=== PATIENT | female | born 1995 | race Caucasian/White ===

== ENCOUNTER → 2017-10-25 10:25 | Outpatient (CLI) | payer SELFPAY ==
[2017-10-25 13:09] LABS: Chlamydia Trachomatis by PCR Negative (Negative); Neisserai gonorrhoeae by PCR Negative (Negative); Probe Check PASS; Sample Adequacy Control PASS; Specimen Processing Control PASS
== END ==
PROVIDERS: Visit Provider Obstetrics & Gynecology
DX: Z11.3 Encounter for screening for infections with a predominantly sexual mode of transmission (principal)
CPT/HCPCS: 87491; 87591

== ENCOUNTER → 2018-01-13 11:41 | Outpatient (CLI) | payer SELFPAY ==
--- NOTE | 2018-01-13 11:48 | RAD_ITS ---
STUDY: HYSTEROSALPINGOGRAM. REASON FOR EXAM: Female, 22 years old. Infertility. FLUOROSCOPY TIME (if supplied): (0:30) minutes/seconds TECHNIQUE: A hysterosalpingogram was performed by the fire prevention inspector. Contrast was injected. Imaging was provided. COMPARISON: None. FINDINGS: The uterus is anteverted. The fallopian tubes are patent bilaterally. RAD/Salpingogram IMPRESSION: The fallopian tubes are patent bilaterally. Electronically Signed: Osmar Little MD at 13:20 EDT Tel [phone], Service support ,
== END ==
PROVIDERS: Visit Provider Obstetrics & Gynecology
DX: N97.9 Female infertility, unspecified (principal)
CPT/HCPCS: 58340; 74740; Q9967

== ENCOUNTER → 2018-04-27 08:56 | Outpatient (CLI) | payer SELFPAY ==
[2018-04-27 10:42] LABS: Glucose 84 mg/dL (74-106)
[2018-04-28 13:37] LABS: DHEA Sulfate 232.1 ug/dL (110.0-431.7)
== END ==
PROVIDERS: Visit Provider Obstetrics & Gynecology
DX: N94.6 Dysmenorrhea, unspecified (principal); D25.9 Leiomyoma of uterus, unspecified
CPT/HCPCS: 36415; 82627; 82947; 83525; 82626

== ENCOUNTER → 2018-05-16 11:01 | Outpatient (CLI) | payer SELFPAY ==
[2018-05-16 12:30] LABS: Progesterone Level 14.46 ng/mL (See Comment)
== END ==
PROVIDERS: Visit Provider Obstetrics & Gynecology
DX: N97.0 Female infertility associated with anovulation (principal)
CPT/HCPCS: 36415; 84144

== ENCOUNTER → 2018-06-10 10:07 | Outpatient (CLI) | payer SELFPAY ==
[2018-06-10 12:56] LABS: Progesterone Level 13.46 ng/mL (See Comment)
== END ==
PROVIDERS: Family Provider Family Medicine; PCP Family Medicine; Referring Provider Obstetrics & Gynecology; Visit Provider Obstetrics & Gynecology
DX: N97.0 Female infertility associated with anovulation (principal)
CPT/HCPCS: 36415; 84144

== ENCOUNTER → 2018-07-11 14:53 | Outpatient (CLI) | payer SELFPAY ==
[2018-07-11 18:45] LABS: Progesterone Level 10.39 ng/mL (See Comment)
--- OUTSIDE RECORDS SUMMARY | 2018-10-13 03:03 | XMS RPT_ITS ---
:1995 Author Organization OHIP Care Team Providers Name Role Phone GomezJunior Summer Attending Unavailable summer Attending Unavailable summer Attending Unavailable summer Referring Unavailable Primay Care Physicia, No Primary Care Unavailable summer Attending Unavailable Primay Care Physicia, No Primary Care Unavailable , Summer Attending Unavailable Primay Care Physicia, No Primary Care Unavailable summer Attending Unavailable summer Referring Unavailable Josie Perez PA-C Primary Care Unavailable PROBLEMS PROBLEMS DATE TYPE CONDITION / CODE ATTENDING STATUS SOURCE 07/11/2018 Unknown N97.0 - Female Pranav, Active [place] infertility [facility] associated with Hospital anovulation / Repository N97.0(ICD-10) 04/27/2018 Unknown N94.6 - Pranav, Active [place] Dysmenorrhea, [facility] unspecified / Hospital N94.6(ICD-10) Repository 04/27/2018 Unknown D25.9 - Leiomyoma Pranav, Active [place] of uterus, [facility] unspecified / Hospital D25.9(ICD-10) Repository 01/13/2018 Unknown N97.9 - Female Pranav, Active [place] infertility, [facility] unspecified / Hospital N97.9(ICD-10) Repository PROCEDURES PROCEDURES No Procedure Records FoundRESULTS RESULTS PROGESTERONE LEVEL Collected: 07/11/2018 Status: F Source: [place] 3:01 PM [facility] Order Comment: TODAY IS CYCLE DAY 23. TYPE CODE TESTS RESULT OUT OF REFERENCE UNITS RANGE LAB L509.4001 See Comment ng/mL Progesterone Normal 10.39 Result Comment: Progesterone Reference Table: UNITS Female: Follicular 0.15 - 1.40 ng/mL Luteal 3.34 - 25.56 ng/mL Mid-luteal 4.44 - 28.03 ng/mL Postmenopausal 0.0 - 0.73 ng/mL : 1st Trimester 11.22 - 90.00 ng/mL 2nd Trimester 25.55 - 89.40 ng/mL 3rd Trimester 48.40 -422.50 ng/mL Performed By: #### L509.4001 #### [facility] [place], [address] PROGESTERONE LEVEL Collected: 06/10/2018 Status: F Source: [place] 10:19 AM [facility] TYPE CODE TESTS RESULT OUT OF REFERENCE UNITS RANGE LAB L509.4001 See Comment ng/mL Progesterone Normal 13.46 Result Comment: Progesterone Reference Table: UNITS Female: Follicular 0.15 - 1.40 ng/mL Luteal 3.34 - 25.56 ng/mL Mid-luteal 4.44 - 28.03 ng/mL Postmenopausal 0.0 - 0.73 ng/mL : 1st Trimester 11.22 - 90.00 ng/mL 2nd Trimester 25.55 - 89.40 ng/mL 3rd Trimester 48.40 -422.50 ng/mL Performed By: #### L509.4001 #### [facility] [address] [place], [address] PROGESTERONE LEVEL Collected: 05/16/2018 Status: F Source: [place] 11:04 AM [facility] Order Comment: TODAY IS CYCLE DAY 23. TYPE CODE TESTS RESULT OUT OF REFERENCE UNITS RANGE LAB L509.4001 See Comment ng/mL Progesterone Normal 14.46 Result Comment: Progesterone Reference Table: UNITS Female: Follicular 0.15 - 1.40 ng/mL Luteal 3.34 - 25.56 ng/mL Mid-luteal 4.44 - 28.03 ng/mL Postmenopausal 0.0 - 0.73 ng/mL : 1st Trimester 11.22 - 90.00 ng/mL 2nd Trimester 25.55 - 89.40 ng/mL 3rd Trimester 48.40 -422.50 ng/mL Performed By: #### L509.4001 #### [facility] [address] [place], [address] GLUCOSE Collected: 04/27/2018 Status: F Source: [place] 8:59 AM [facility] Order Comment: TODAY IS CYCLE DAY 4 TYPE CODE TESTS RESULT OUT OF RANGE REFERENCE UNITS LAB L501.0100 74-106 mg/dL Normal GLU 84 Result Comment: Please note revised GLUCOSE reference range effective 2017. Performed By: #### L501.0100 #### [facility] [address] [place], [address] INSULIN Collected: 04/27/2018 Status: F Source: [place] 8:59 AM [facility] TYPE CODE TESTS RESULT OUT OF RANGE REFERENCE UNITS LAB [id number] 2.6-37.6 mU/L Normal Insulin 6.0 Result Comment: Please Note: INSULIN METHOD AND REFERENCE RANGE CHANGE Effective 08/04/2017. Performed By: #### [id number] #### [facility] [address] [place], [address] DHEA SULFATE Collected: 04/27/2018 Status: F Source: [place] 8:59 AM [facility] Order Comment: Has Patient had Radioactive Injection for X-ray?: N TYPE CODE TESTS RESULT OUT OF RANGE REFERENCE UNITS LAB L3300.1500 110.0-431.7 ug/dL Normal DHEA SULF 232.1 4020 Result Comment: Performed at: - [facility] [address] [id number] Nurse College: Cameron Steele PhD, Phone: [phone] Performed By: #### L3300.1500 #### [facility] (refer to report for specific site) refer to report for address and phone number SALPINGOGRAM Observed: 01/13/2018 Status: F Source: [place] 11:48 AM [facility] [address] [place] [address] Salpingogram MR#: [id number] Acct: [id number] Name: LISA DUFF Rep #: [id number] : 1995 F 22 From: Osmar Little MD PCP: Care Physician, No Primary Status: REG CLI Study: Salpingogram Date of Exam: 01/13/18 Exam# [id number] Ordering Dr: Lucy Montenegro MD STUDY: HYSTEROSALPINGOGRAM. REASON FOR EXAM: Female, 22 years old. Infertility. FLUOROSCOPY TIME (if supplied): (0:30) minutes/seconds TECHNIQUE: A hysterosalpingogram was performed by the ice skating teacher. Contrast was injected. Imaging was provided. COMPARISON: None. FINDINGS: The uterus is anteverted. The fallopian tubes are patent bilaterally. RAD/Salpingogram IMPRESSION: The fallopian tubes are patent bilaterally. Electronically Signed: Osmar Little MD at 13:20 EDT Tel [phone], Service support , CC: No Primary Care Physician; Lucy Rock MD Winch Driver: Signed CT/NG [facility] BY PCR Collected: 10/25/2017 Status: F Source: [place] 9:15 AM [facility] REPOSITORY TYPE CODE TESTS RESULT OUT OF RANGE REFERENCE UNITS LAB L8200.2100 Negative Normal Chlam Negative Trac PCR LAB L8200.2200 Negative Normal NG by Negative PCR Performed By: #### L8200.2000 #### [facility] [address] [place], [address] ALLERGIES ALLERGIES No Allergies Records FoundENCOUNTERS ENCOUNTERS ADMIT/DISCHARGE ACCOUNT ADMITTING ENCOUNTER LOCATION SOURCE NUMBER CLASS 07/11/2018 [id number] Ambulatory [facility] ing:LABSPEC Repository 06/10/2018 [id number] [facility] ing:LAB Repository 05/16/2018 [id number] Ambulatory [facility] ing:WOBLAB Repository 04/27/2018 [id number] Ambulatory [address] ing:WOBLAB Repository 01/13/2018 [id number] Ambulatory [facility] ing:RAD Repository 10/25/2017 [id number] Ambulatory [facility] ing:LABSPEC Repository PAYERS PAYERS ENCOUNTER GUARANTOR PAYER SUBSCRIBER SOURCE 07/11/2018 LISA Fay Primary NOT GIVENUNK [place] [id number] BRISA Insurance:SELF PAY [place] [address]Tel: [phone]) Number: Effective Repository [phone] () Date:2018-07-11 06/10/2018 LISA Fay Primary NOT GIVENUNK [place] [id number] [place] Insurance:SELF PAY [facility] [address]Xfo: [phone]) Number: Effective Repository [phone] () Date:2018-06-10 05/16/2018 LISA Fay Primary NOT GIVENUNK [place] [id number] [place] Insurance:SELF PAY [place] [address]Tel: [phone]) Number: Effective Repository [phone] () Date:2018-05-16 04/27/2018 LISA J Primary NOT GIVENUNK [place] [id number] BRISA Insurance:SELF PAY [facility] [address]Efj: [phone]) Number: Effective Repository [phone] () Date:2018-04-25 01/13/2018 LISA J Primary Insurance:[facility] LISA J [place] [id number] BRISA PACKAGE PLANPoly CHOJDOB: [place], [place] Number: [id number] [address]Aed: [phone]) [id number] Repository [phone] () Date:2018-01-06 01/13/2018 Secondary NOT GIVENUNK [place] Insurance:SELF PAY [facility] Number: Effective Repository Date:2018-01-06 10/25/2017 LISA Primary NOT GIVENUNK [place] [id number] BRISA Insurance:SELF PAY [facility] [address]Rjt: . () Number: Effective Repository Date:2017-10-25
== END ==
PROVIDERS: Visit Provider Obstetrics & Gynecology
DX: N97.0 Female infertility associated with anovulation (principal)
CPT/HCPCS: 36415; 84144

== ENCOUNTER → 2018-10-26 12:04 | Outpatient (CLI) | payer SELFPAY | PROVIDERS: Visit Provider Obstetrics & Gynecology | DX: N97.0 Female infertility associated with anovulation (principal) | CPT/HCPCS: 36415; 84144 ==

== ENCOUNTER → 2019-02-06 | Outpatient (CLI) | payer SELFPAY ==
[2019-02-06 14:39] VITALS: BMI 21.8
[2019-02-06 16:06] LABS: Absolute Lymphocyte Count 1.66 X10^3/uL (0.83-4.51); Absolute Neutrophil Count 7.4 X10^3/uL (2.0-7.7); Basophil# 0.03 X10^3/uL; Basophil% 0.3 % (0-1); Eosinophil# 0.05 X10^3/uL; Eosinophils% 0.5 % (0-5); Hematocrit 39.2 % (37-47); Hemoglobin 14.1 g/dL (12.0-15.0); Lymphocyte # 1.66 X10^3/ul (4.0); Lymphocyte % 16.8 % (19-41); Mean Corpuscular Hgb 31.7 pg (27.0-32.0); Mean Corpuscular Volume 88.1 fL (81-99); Monocyte% 7.1 % (0-10); NRBC Flagged by Analyzer 0 % (0-5); Platelet Count 169 K/mm3 (150-450); RBC Distribution Width CV 11.9 % (11.6-14.6); RBC Distribution Width SD 37.7 fl (35.1-43.9); Red Blood Count 4.45 M/mm3 (4.2-5.4); White Blood Count 9.9 K/mm3 (4.4-11.0)
[2019-02-06 17:31] LABS: HIV - WCH Non-Reactive (Nonreactive); Rubella IgG 159.9 IU/mL
[2019-02-06 22:49] LABS: Chlamydia Trachomatis by PCR Negative (Negative); Neisserai gonorrhoeae by PCR Negative (Negative); Probe Check PASS; Sample Adequacy Control PASS; Specimen Processing Control PASS
[2019-02-09 04:56] LABS: Rapid Plasmin Reagin (RPR) NONREACTIVE (NONREACTIVE)
[2019-02-12 13:23] LABS: HPV Reflexed? NOT INDICATED
== END | disposition home or self-care (01) ==
PROVIDERS: Referring Provider Nurse Practitioner Women's Health; Visit Provider Nurse Practitioner Women's Health
DX: Z34.90 Encounter for supervision of normal pregnancy, unspecified, unspecified trimester (principal)
CPT/HCPCS: 36415; 85025; 86592; 86703; 86762; 86850; 86900; 87086; 87491; 87591; 87624; 88175; G0145

== ENCOUNTER → 2019-04-17 13:25 | Outpatient (CLI) | payer SELFPAY ==
[2019-03-06 15:10] VITALS: BMI 22.4
--- NOTE | 2019-04-17 13:27 | US_ITS ---
STUDY: SECOND AND THIRD TRIMESTER OBSTETRICAL ULTRASOUND REASON FOR EXAM: Female, 23 years old ANATOMY SCAN LMP: 11/30/2018 TECHNIQUE: Transabdominal TECHNICAL QUALITY: Adequate. PRIOR ULTRASOUND: None. FINDINGS: There is a single intrauterine fetus. The fetus is in a breech presentation. There is demonstrated cardiac activity with a heart rate of 143 bpm. There is a normal amniotic fluid volume. The placenta is posterior in location and is not low lying. There are Grade 0 placental changes. The cervix measures 3.5 cm in length. The adnexal regions are not visualized. BIOMETRY: BPD: 4.6: 19 weeks, 5 days HC: 17.5: 19 weeks, 6 days AC: 14.8: 20 weeks, 0 days FL: 3.2: 19 weeks, 6 days CI: FL/BPD: FL/HC: FL/AC: HC/AC: age by current US: 20 weeks, 0 days. JAKE by current US: 09/04/2019. Estimated weight: 325 grams, +/- 49 grams, 60 %. age by prior US: weeks, days. JAKE by prior US: . Age by LMP: 19 weeks, 5 days. JAKE by LMP: 09/06/2019. ANATOMY: Gender: Male Cranium: Normal lateral ventricles. Normal choroid plexus. Normal cerebellum. Normal cisterna magna. Normal face, nose and lips. Chest: Normal 4-chamber heart. Abdomen/Pelvis: Normal diaphragm. Normal stomach. Normal abdominal wall. Normal cord insertion. Normal 3 vessel cord. Normal kidneys. Normal bladder. Spine: Normal cervical spine. Normal thoracic spine. Normal lumbar spine. Normal sacrum. Extremities: Normal bilateral upper extremities. Normal bilateral lower extremities. US/OB Anatomy Scan IMPRESSION: Single live fetus in a breech presentation. No demonstrated anatomic abnormality. Placenta is grade 0 and is not low-lying. Cervix is closed. age by current US: 20 weeks, 0 days. JAKE by current US: 09/04/2019. Estimated weight: 325 grams, +/- 49 grams, 60 %. Electronically Signed: Paolo Lane MD at 23:00 EDT , Service support ,
== END ==
PROVIDERS: Referring Provider Obstetrics & Gynecology; Visit Provider Obstetrics & Gynecology
DX: Z36.89 Encounter for other specified antenatal screening (principal)
CPT/HCPCS: 76805

== ENCOUNTER → 2019-06-12 09:05 | Outpatient (CLI) | payer SELFPAY ==
[2019-06-12 08:55] VITALS: BMI 22.4
[2019-06-12 10:28] LABS: Absolute Lymphocyte Count 1.44 X10^3/uL (0.83-4.51); Absolute Neutrophil Count 9.1 X10^3/uL (2.0-7.7); Basophil# 0.03 X10^3/uL; Basophil% 0.3 % (0-1); Eosinophil# 0.05 X10^3/uL; Eosinophils% 0.4 % (0-5); Hematocrit 37.7 % (37-47); Hemoglobin 12.9 g/dL (12.0-15.0); Lymphocyte # 1.44 X10^3/ul (4.0); Lymphocyte % 12.6 % (19-41); Mean Corp Hgb Conc 34.2 g/dL (32-36); Mean Corpuscular Hgb 31.7 pg (27.0-32.0); Mean Corpuscular Volume 92.6 fL (81-99); Mean Platelet Vol. 8.3 fl (6.2-12.0); Monocyte# 0.76 X10^3/uL; Monocyte% 6.7 % (0-10); NRBC Flagged by Analyzer 0 % (0-5); Neutrophil # 9.06 X10^3/uL (2.7-7.7); Neutrophil % 79.4 % (47-70); Platelet Count 147 K/mm3 (150-450); RBC Distribution Width CV 12.6 % (11.6-14.6); RBC Distribution Width SD 42.1 fl (35.1-43.9); Red Blood Count 4.07 M/mm3 (4.2-5.4); White Blood Count 11.4 K/mm3 (4.4-11.0)
[2019-06-12 10:33] LABS: Glucose Challenge Gest 1H 50g 95 mg/dL (70-140)
[2019-06-12 11:00] LABS: Hepatitis B Surface Antigen Non-Reactive (Nonreactive)
== END ==
PROVIDERS: Referring Provider Nurse Practitioner Women's Health; Visit Provider Nurse Practitioner Women's Health
DX: O99.89 Other specified diseases and conditions complicating pregnancy, childbirth and the puerperium (principal); Z20.821 Contact with and (suspected) exposure to Zika virus
CPT/HCPCS: 36415; 82950; 85025; 87340

== ENCOUNTER → 2019-08-16 13:01 | Outpatient (CLI) | payer SELFPAY ==
[2019-08-16 08:37] VITALS: BMI 22.4
== END ==
PROVIDERS: Visit Provider Obstetrics & Gynecology
DX: Z34.01 Encounter for supervision of normal first pregnancy, first trimester (principal)
CPT/HCPCS: 87081

== ENCOUNTER 2019-08-18 02:50 | Inpatient (IN) | payer SELFPAY ==
[2019-02-06 14:39] VITALS: BMI 21.8
[2019-08-16 08:37] VITALS: BMI 22.4
[2019-08-18] MEDS: Lactated Ringers 1,000 ML 999 ML IV (03:10)
[2019-08-18 03:14] VITALS: BMI 26.6
[2019-08-18 03:21] LABS: Absolute Lymphocyte Count 1.07 X10^3/uL (0.83-4.51); Basophil# 0.02 X10^3/uL; Basophil% 0.1 % (0-1); Eosinophil# 0.01 X10^3/uL; Eosinophils% 0.1 % (0-5); Hemoglobin 13.2 g/dL (12.0-15.0); Lymphocyte # 1.07 X10^3/ul (4.0); Lymphocyte % 7.3 % (19-41); Mean Corp Hgb Conc 34.7 g/dL (32-36); Mean Corpuscular Hgb 31.5 pg (27.0-32.0); Mean Corpuscular Volume 90.7 fL (81-99); Mean Platelet Vol. 8.6 fl (6.2-12.0); Monocyte# 0.61 X10^3/uL; Monocyte% 4.1 % (0-10); NRBC Flagged by Analyzer 0 % (0-5); Neutrophil # 12.95 X10^3/uL (2.7-7.7); Neutrophil % 87.9 % (47-70); Platelet Count 129 K/mm3 (150-450); RBC Distribution Width CV 12.5 % (11.6-14.6); RBC Distribution Width SD 40.3 fl (35.1-43.9); Red Blood Count 4.19 M/mm3 (4.2-5.4); White Blood Count 14.7 K/mm3 (4.4-11.0)
--- NOTE | 2019-08-18 03:55 | HP.PCM_ITS ---
- Problem List (1) Active labor at term Status: Acute (2) Zika virus exposure Status: Acute Comment: Traveled to [place], negative testing (3) Status: Acute Qualifiers: Comment: genetic, ntd, and afp screening declined. normal anatomy (4) Supervision of normal first Status: Acute Qualifiers: Comment: PRR JAKE 09/06/19 boy (surprise name) Spouse: Kristopher History Date of Admission: 08/18/19 Final JAKE: 09/06/19 Gestational age: 37 Weeks and 2 Days History of this : This is a 24 year-old, at 37 weeks gestational age presents in active labor 7 to 8 cm dilated. She has had some bloody show no loss of fluid. She admits good movement. She has had an uncomplicated with no significant abnormalities. GBS was just collected the other day which she has no risk factors.. Medical History: Medical History (Last Reviewed 08/16/19 @ 08:36 by Connie Jackson) Infertility Surgical History: Surgical History (Last Reviewed 08/16/19 @ 08:36 by Connie Jackson) History of appendectomy Z90.49 [place] teeth extracted K08.409 Allergies No Known Allergies Allergy (Verified 08/16/19 08:36) Home Medications: Home Medications prenat.vits,keshia,azm-hsjm-jlwcd 1 tab PO DAILY 02/06/19 Smoking Status: Never smoker Alcohol: None Number of Fetus(es): 1 NST - FHR Rate Baby A Baseline: 120 Variability:: Moderate Accelerations:: 15 x 15 Decelerations:: None NST Reactive:: Yes FHR Category:: Category I Uterine Activity:: q 2-3 History Past Pregnancies: Past Pregnancies Delivery Date Name GA/ Weeks Outcome Route Wt Infant Sex Labor Length Anesthesia Delivery Location Provider FOB Labs: Mom's Labs & Results 08/18/19 08/18/19 08/18/19 03:10 03:10 03:16 WBC 14.7 H RBC 4.19 L Hgb 13.2 Hct 38.0 MCV 90.7 MCH 31.5 MCHC 34.7 RDW Std Deviation 40.3 RDW Coeff of Nathan 12.5 Plt Count 129 L MPV 8.6 Immature Gran % (Auto) 0.500 Neut % (Auto) 87.9 H Lymph % (Auto) 7.3 L [place] % (Auto) 4.1 Eos % (Auto) 0.1 Baso % (Auto) 0.1 Absolute Neuts (auto) 13.0 H Absolute Lymphs (auto) 1.07 Nucleated RBC % 0 Group B Strep DNA Pending Specimen Comment Pending Blood Type Pending Antibody Screen Pending Social History Smoking Status Never smoker Expected Delivery Method: Spontaneous Vaginal Review of Systems Constitutional: Denies: Fever, Malaise Eyes: Denies: Blurred vision, Vision Change HEENT: Denies: Head Aches, Visual Changes Cardiovascular: Denies: Chest Pain, Palpitations Respiratory: Denies: Cough, Shortness of Breath, Wheezing Gastrointestinal: Denies: Abdominal Pain, Diarrhea, Nausea, Vomiting Genitourinary: Denies: Dysuria, Hematuria Musculoskeletal: Denies: Joint Pain, Muscle pain Skin: Denies: Lesions, Rash Neurological: Denies: Blurred vision, Focal weakness, Headaches Psychiatric: Denies: Anxiety, Depression Endocrine: Denies: Heat/ Cold Intolerance Hematologic/ Lymphatic: Denies: Easy Bruising, Easy Bleeding Physical Exam General: Alert, Cooperative, No apparent distress HEENT: Atraumatic, Normocephalic. Negative for: Thyromegaly, Lymphadenopathy Cardiovascular: Regular rate Lungs: Normal air movement Abdomen: Soft, Non Tender, Gravid Neurological: Deep Tendon Reflexes 2+/4 and Symmetrical, Neuro grossly intact. Negative for: Clonus CUSTOMS INVESTIGATOR: Normal external genitalia. Negative for: Vulvar lesions Estimated gestational size: Appropriate for gestational size Presentation: Cephalic Assessment/Plan All Active Problems (Last Reviewed 08/16/19 @ 08:36 by Connie Jackson) Active labor at term (Acute) Zika virus exposure (Acute) (Acute) Supervision of normal first (Acute) This is a 24 year-old, , at 37 weeks gestational age presents IAL. Patient presents IAL, plan expectant management for , pitocin/AROM PRN if needed. Pain management: Minimal intervention. GBS no risk factors, final culture pending no treatment indicated at this time. Management of any complications: None I have reviewed the [facility] and made any clinically relevant updates.
[2019-08-18 04:25] LABS: Group B Strep DNA By PCR Negative (Negative); Internal Control PASS; Probe Check PASS; Specimen Processing Control PASS
--- NOTE | 2019-08-18 05:14 | OP.PCM_ITS ---
Problem List (1) Active labor at term Status: Acute (2) Zika virus exposure Status: Acute Comment: Traveled to [place], negative testing (3) Status: Acute Qualifiers: Comment: genetic, ntd, and afp screening declined. normal anatomy (4) Supervision of normal first Status: Acute Qualifiers: Comment: PRR JAKE 09/06/19 boy (surprise name) Spouse: Kristopher Vaginal Delivery Maternal Presentation: Active Labor ial 37 Amniotic Membrane Rupture Type: Artificial Amniotic Fluid Description: Clear Final JAKE: 09/06/19 Gestational age: 37 Weeks and 2 Days Date of Procedure: 08/18/19 Pre-Operative Diagnosis: ial Post-Operative Diagnosis: same Surgery/ Procedure Performed: Spontaneous Vaginal Delivery Type of Anesthesia: None Description of Procedure: Patient began pushing and delivered the head in the [DIGNA] presentation. The head was delivered atraumatically [and a loose nuchal cord ?1 was identified and easily reduced over the infant's head]. The anterior and posterior shoulders delivered without complication followed by the rest of the and the infant was placed on the maternal abdomen. Delayed cord clamping was employed for approximately 60 seconds. Cord was clamped and cut and gentle traction was applied to the cord and the placenta delivered spontaneously immediately following it was noted to be intact with three-vessel cord. The perineum and vagina were inspected and [noted to have no laceration]. EBL was [100 cc]. Patient and infant tolerated delivery well. Multi Select Codes - Urinary/Genital Urinary/Genital CPT Codes: 98009 Vaginal Delivery [facility]
[2019-08-18] MEDS: Oxytocin 30 units/NS 500 ml 30 UNITS/500 ML IV.SOLN 334 UNITS IV (05:56)
[2019-08-18] MEDS: Naproxen 250 MG Tablet 500 MG PO ×2 (06:42→20:06)
[2019-08-18 08:05] VITALS: BP 128/81; PULSE 96; RESP 16; TEMP 36.9; O2SAT 96
[2019-08-18 14:00] VITALS: BP 114/71; PULSE 111; RESP 16; TEMP 37.2
[2019-08-18 15:51] VITALS: BP 121/67; PULSE 108; RESP 18; TEMP 37.2
[2019-08-18 20:00] VITALS: BP 118/71; PULSE 105; RESP 16; TEMP 36.9
[2019-08-19] VITALS: BP 105/57; PULSE 102; RESP 16; TEMP 36.7
[2019-08-19 04:00] VITALS: BP 100/62; PULSE 93; RESP 16; TEMP 36.7
[2019-08-19 08:55] VITALS: BP 124/71; PULSE 113; RESP 16; TEMP 36.8
--- NOTE | 2019-08-19 10:39 | PCM.PN.OB ---
Patient Problems: Active and Suspected Problems (Last Reviewed 08/16/19 @ 08:36 by Connie Jackson) Active labor at term (Acute) Subjective: doing well no complaints pain controlled no CP SOB N V ambulating well tolerating po lochia moderate, going well - Physical Exam Vitals/I&O's: Vital Signs Temp Pulse Resp BP Pulse Ox 98.2 F 113 H 16 124/71 H 96 08/19/19 08:55 08/19/19 08:55 08/19/19 08:55 08/19/19 08:55 08/18/19 08:05 Oxygen Delivery Method Room Air Weight: 150 lb 12.739 oz Body Mass Index (BMI) 26.6 Intake and Output for Last 24 Hours 08/17/19 08/18/19 08/19/19 23:59 23:59 23:59 Intake Total 1500.00 / 1500.00 Output Total 400 / 400 Balance 1100.00 / 1100.00 General: Alert, Oriented x3 Current Medications Acetaminophen (Tylenol) 1,000 mg PO Q8H PRN PRN PRN Reason: Pain Score 1-3/10 Bisacodyl (Dulcolax) 10 mg RECTAL UD PRN PRN Reason: If no BM Dibucaine (Dibucaine) 1 applic TOPICAL TID PRN PRN; Protocol PRN Reason: Discomfort Hydrocortisone (Hytone) 1 applic TOPICAL TID PRN PRN; Protocol PRN Reason: Discomfort Methylergonovine Maleate (Methergine) 0.2 mg IM X1 PRN PRN Reason: Excess bleeding/uterine atony Naproxen (Naprosyn) 500 mg PO Q8H PRN PRN PRN Reason: Pain Score 1-3/10 Last Admin: 08/18/19 20:06 Dose: 500 mg Documented by: Ondansetron HCl (Zofran) 4 mg IV Q4H PRN PRN PRN Reason: Nausea Oxycodone HCl (Oxyir) 5 - 10 mg PO Q4H PRN PRN PRN Reason: Pain Score 4-10/10 Senna/Docusate Sodium (Senokot-S, Mari-Colace) 1 - 2 tablet PO DAILY PRN PRN PRN Reason: Constipation Simethicone (Mylicon) 80 mg PO PCHS PRN PRN Reason: Indigestion/Stomach pain Sodium Chloride () 5 - 15 ml IV UD PRN PRN Reason: SALINE FLUSH Medical Necessity - Tobacco Use Smoking Status: Never smoker Assessment/Plan All Active Problems (Last Reviewed 08/16/19 @ 08:36 by Connie Jackson) Active labor at term (Acute) Zika virus exposure (Acute) (Acute) Supervision of normal first (Acute) s/p PPD # 1 1. routine post delivery care 2. breast feeding- support given 3. rh positive 4. rubella immune
[2019-08-19 15:00] VITALS: BP 99/69; PULSE 103; RESP 16; TEMP 36.7
[2019-08-19 19:45] VITALS: BP 95/71; PULSE 105; RESP 16; TEMP 36.6
[2019-08-20 02:40] VITALS: BP 101/67; PULSE 105; RESP 16; TEMP 36.5
--- NOTE | 2019-08-20 07:43 | PCM.PN.OB ---
Patient Problems: Active and Suspected Problems (Last Reviewed 08/16/19 @ 08:36 by Connie Jackson) Active labor at term (Acute) Subjective: Doing well, no complaints.Pain controlled. Denies CP, SOB, N,V. Ambulating well, tolerating po. Lochia moderate, going well. - Physical Exam Vitals/I&O's: Vital Signs Temp Pulse Resp BP Pulse Ox 97.7 F L 105 H 16 101/67 96 08/20/19 02:40 08/20/19 02:40 08/20/19 02:40 08/20/19 02:40 08/18/19 08:05 Oxygen Delivery Method Room Air Weight: 150 lb 12.739 oz Body Mass Index (BMI) 26.6 Intake and Output for Last 24 Hours 08/18/19 08/19/19 08/20/19 23:59 23:59 23:59 Intake Total 1500.00 / 1500.00 Output Total 400 / 400 Balance 1100.00 / 1100.00 General: Alert, Oriented x3 Abdomen: Soft, Non Tender, - - FF below U Current Medications Acetaminophen (Tylenol) 1,000 mg PO Q8H PRN PRN PRN Reason: Pain Score 1-3/10 Bisacodyl (Dulcolax) 10 mg RECTAL UD PRN PRN Reason: If no BM Dibucaine (Dibucaine) 1 applic TOPICAL TID PRN PRN; Protocol PRN Reason: Discomfort Hydrocortisone (Hytone) 1 applic TOPICAL TID PRN PRN; Protocol PRN Reason: Discomfort Methylergonovine Maleate (Methergine) 0.2 mg IM X1 PRN PRN Reason: Excess bleeding/uterine atony Naproxen (Naprosyn) 500 mg PO Q8H PRN PRN PRN Reason: Pain Score 1-3/10 Last Admin: 08/18/19 20:06 Dose: 500 mg Documented by: Ondansetron HCl (Zofran) 4 mg IV Q4H PRN PRN PRN Reason: Nausea Oxycodone HCl (Oxyir) 5 - 10 mg PO Q4H PRN PRN PRN Reason: Pain Score 4-10/10 Senna/Docusate Sodium (Senokot-S, Mari-Colace) 1 - 2 tablet PO DAILY PRN PRN PRN Reason: Constipation Simethicone (Mylicon) 80 mg PO PCHS PRN PRN Reason: Indigestion/Stomach pain Sodium Chloride () 5 - 15 ml IV UD PRN PRN Reason: SALINE FLUSH Medical Necessity - Tobacco Use Smoking Status: Never smoker Assessment/Plan All Active Problems (Last Reviewed 08/16/19 @ 08:36 by Connie Jackson) Active labor at term (Acute) Zika virus exposure (Acute) (Acute) Supervision of normal first (Acute) s/p PPD # 2 1. routine post delivery care 2. breast feeding- support given 3. rh positive 4. rubella immune 5. home today
--- NOTE | 2019-08-20 07:44 | DCINST_ITS ---
Additional Instructions: If you experience any of the following, contact your healthcare provider. * Bleeding that soaks a pad every hour for 2 hours * Fever 100.4 or higher * Unrelieved incision or abdominal pain * Swelling, redness, discharge or bleeding from your incision or episiotomy site * Your incision begins to separate * Problems urinating (including inability to urinate or burning while urinating). * Visual changes * Severe headache * Flu-like symptoms * Pain or redness in one of both of your breasts * Pain, warmth, tenderness or swelling in your legs, especially the calf area * Frequent nausea and vomiting * Symptoms of depression or anxiety If you experience any of the following, call 911 or go to the nearest Emergency Room. * Chest pain * Problems breathing * Seizure activity * Partial or complete paralysis of a body part, slurred speech, weakness or drooping of the face, or a sudden inability to walk or hold your balance Allergies/Adverse Reactions: Allergies No Known Allergies Allergy (Verified 08/18/19 05:08) Medications to take at Discharge prenat.vits,keshia,hzp-zqnj-lgbpz 1 tab PO DAILY 02/06/19 Primary Care Physician: Care Physician,No Primary [Primary Care Provider] - Test Results: Test results from this visit will be discussed in further detail at your follow- up appointment, if applicable.
--- NOTE | 2019-08-20 07:44 | PCM.DCVAG ---
Additional Instructions: If you experience any of the following, contact your healthcare provider. Bleeding that soaks a pad every hour for 2 hours Fever 100.4 or higher Unrelieved incision or abdominal pain Swelling, redness, discharge or bleeding from your incision or episiotomy site Your incision begins to separate Problems urinating (including inability to urinate or burning while urinating). Visual changes Severe headache Flu-like symptoms Pain or redness in one of both of your breasts Pain, warmth, tenderness or swelling in your legs, especially the calf area Frequent nausea and vomiting Symptoms of depression or anxiety If you experience any of the following, call 911 or go to the nearest Emergency Room. Chest pain Problems breathing Seizure activity Partial or complete paralysis of a body part, slurred speech, weakness or drooping of the face, or a sudden inability to walk or hold your balance Allergies/Adverse Reactions: Allergies No Known Allergies Allergy (Verified 08/18/19 05:08) Medications to take at Discharge prenat.vits,keshia,[id number]-svadi 1 tab PO DAILY 02/06/19 Primary Care Physician: Care Physician,No Primary [Primary Care Provider] - Test Results: Test results from this visit will be discussed in further detail at your follow-up appointment, if applicable.
[2019-08-20 08:21] VITALS: BP 100/69; PULSE 98; RESP 16; TEMP 36.7
--- NOTE | 2019-08-20 08:30 | NURSING ---
Pt states she has slight headache, denies vision changes, denies any pain intervention. States she thinks eating may help
== END 2019-08-20 11:15 | disposition home or self-care (01) | DRG 807 ==
PROVIDERS: Admitting Provider Obstetrics & Gynecology; Referring Provider Obstetrics & Gynecology; Visit Provider Obstetrics & Gynecology
DX: O60.14X0 Preterm labor third trimester with preterm delivery third trimester, not applicable or unspecified (principal); Z37.0 Single live birth; O69.81X0 Labor and delivery complicated by cord around neck, without compression, not applicable or unspecified; Z20.821 Contact with and (suspected) exposure to Zika virus; Z3A.37 37 weeks gestation of pregnancy; Z90.49 Acquired absence of other specified parts of digestive tract
CPT/HCPCS: 59025; 59050; 85025; 86850; 86900; 86901; 87081; 87653; 99218; J7120; G0378

== ENCOUNTER → 2020-10-13 09:45 | Outpatient (CLI) | payer SELFPAY ==
[2020-10-13 09:12] VITALS: BMI 22.1
[2020-10-13 10:02] LABS: Absolute Neutrophil Count 6.5 X10^3/uL (2.0-7.7); Basophil# 0.02 X10^3/uL; Basophil% 0.2 % (0-1); Eosinophil# 0.02 X10^3/uL; Eosinophils% 0.2 % (0-5); Hematocrit 40.9 % (37-47); Hemoglobin 14.2 g/dL (12.0-15.0); Lymphocyte % 19.4 % (19-41); Mean Corp Hgb Conc 34.7 g/dL (32-36); Mean Corpuscular Hgb 31.1 pg (27.0-32.0); Mean Corpuscular Volume 89.7 fL (81-99); Mean Platelet Vol. 8.9 fl (6.2-12.0); Monocyte% 5.7 % (0-10); NRBC Flagged by Analyzer 0 % (0-5); Neutrophil # 6.52 X10^3/uL (2.7-7.7); Neutrophil % 74.3 % (47-70); Platelet Count 201 K/mm3 (150-450); RBC Distribution Width CV 12.4 % (11.6-14.6); RBC Distribution Width SD 39.9 fl (35.1-43.9); Red Blood Count 4.56 M/mm3 (4.2-5.4); White Blood Count 8.8 K/mm3 (4.4-11.0)
[2020-10-13 10:39] LABS: Rubella IgG Reactive (Nonreactive)
== END ==
PROVIDERS: Referring Provider Obstetrics & Gynecology; Visit Provider Obstetrics & Gynecology
DX: Z34.90 Encounter for supervision of normal pregnancy, unspecified, unspecified trimester (principal)
CPT/HCPCS: 36415; 85025; 86762; 86850; 86900; 86901; 87086; 87088

== ENCOUNTER → 2020-12-25 08:02 | Outpatient (CLI) | payer SELFPAY ==
[2020-11-13 08:26] VITALS: BMI 22.8
--- NOTE | 2020-12-25 08:05 | US_ITS ---
STUDY: SECOND AND THIRD TRIMESTER OBSTETRICAL ULTRASOUND REASON FOR EXAM: Female, 25 years old anatomy LMP: 08/13/2020. TECHNIQUE: Transabdominal and Transvaginal TECHNICAL QUALITY: Adequate. PRIOR ULTRASOUND: None. FINDINGS: There is a single intrauterine fetus. The fetus is in a breech transverse right presentation. There is demonstrated cardiac activity with a heart rate of 133 bpm. There is a normal amniotic fluid volume. The largest amniotic fluid pocket measures 2.8 cm x 3.1 cm. The amniotic fluid index (PEREZ) is within normal limits. The placenta is anterior in location and is not low lying. The distal tip of the placenta is at 2 cm from the cervical os. There are Grade 0 placental changes. The cervix measures 3.7 cm in length. The bilateral adnexal regions are normal. BIOMETRY: BPD: 4.5 cm: 19 weeks, 3 days HC: 16.3 cm: 19 weeks, 0 days AC: 14.1 cm: 19 weeks, 3 days FL: 3 cm: 19 weeks, 0 days CI: 82% FL/BPD: 66% FL/HC: FL/AC: 21% HC/AC: 1.16 age by current US: 19 weeks, 1 days. JAKE by current US: 05/20/2021. Estimated weight: 286 grams, +/- 43 grams, 55 %. Age by LMP: 19 weeks, 1 days. JAKE by LMP: 05/20/2021. ANATOMY: Gender: Cranium: Normal lateral ventricles. Left choroid plexus cyst measuring 3 mm x 7 mm. Normal cerebellum. Normal cisterna magna. Normal face, nose and lips. Chest: Normal 4-chamber heart. Abdomen/Pelvis: Normal diaphragm. Normal stomach. Normal abdominal wall. Normal cord insertion. Normal 3 vessel cord. Normal kidneys. Normal bladder. Spine: Normal cervical spine. Normal thoracic spine. Normal lumbar spine. Normal sacrum. Extremities: Normal bilateral upper extremities. Normal bilateral lower extremities. US/OB Anatomy Scan IMPRESSION: Single live intrauterine gestation with a mean gestational age of 19 weeks and 1 day. Small left choroid plexus cyst. Electronically Signed: Osmar Little MD at 14:52 EDT , Service support ,
== END ==
PROVIDERS: Referring Provider Obstetrics & Gynecology; Visit Provider Obstetrics & Gynecology
DX: Z34.80 Encounter for supervision of other normal pregnancy, unspecified trimester (principal)
CPT/HCPCS: 76805; 76817

== ENCOUNTER → 2021-01-23 09:07 | Outpatient (CLI) | payer SELFPAY ==
[2020-12-25 09:48] VITALS: BMI 22.8
--- NOTE | 2021-01-23 09:12 | US_ITS ---
STUDY: SECOND AND THIRD TRIMESTER OBSTETRICAL ULTRASOUND - LIMITED REASON FOR EXAM: Female, 25 years old FU choroid plexus cyst LMP: 08/13/2020. PRIOR ULTRASOUND: Comparison is made with prior examination dated 12/25/2020. TECHNIQUE: Transabdominal TECHNICAL QUALITY: Adequate. FINDINGS: There is a single intrauterine fetus. The fetus is in a breech presentation. There is demonstrated cardiac activity with a heart rate of 152 bpm. There is a normal amniotic fluid volume. The largest amniotic fluid pocket measures 4.7 cm x 6.6 cm. The amniotic fluid index (PEREZ) is within normal limits. The placenta is anterior in location and is not low lying. There are Grade 1 placental changes. The cervix measures 3.5 cm in length. BIOMETRY: Age by LMP: 23 weeks, 2 days. JAKE by LMP: 05/20/2021. age by prior US: 23 weeks, 2 days. JAKE by prior US: 05/20/2021. The choroid plexus cyst presently measures 4 mm x 3 mm. US/OB Limited (No Biometrics) IMPRESSION: Choroid plexus cyst presently measures 4 mm x 3 mm Electronically Signed: Osmar Little MD at 10:30 EDT , Service support ,
== END ==
PROVIDERS: Referring Provider Obstetrics & Gynecology; Visit Provider Obstetrics & Gynecology
DX: O35.0XX0 Maternal care for (suspected) central nervous system malformation in fetus, not applicable or unspecified (principal); Z3A.00 Weeks of gestation of pregnancy not specified
CPT/HCPCS: 76815

== ENCOUNTER → 2021-02-19 10:09 | Outpatient (CLI) | payer SELFPAY ==
[2021-01-23 10:42] VITALS: BMI 22.8
[2021-02-19 10:29] LABS: Absolute Lymphocyte Count 1.17 X10^3/uL (0.83-4.51); Absolute Neutrophil Count 7.6 X10^3/uL (2.0-7.7); Basophil# 0.02 X10^3/uL; Basophil% 0.2 % (0-1); Eosinophil# 0.03 X10^3/uL; Eosinophils% 0.3 % (0-5); Hematocrit 37.3 % (37-47); Hemoglobin 12.8 g/dL (12.0-15.0); Lymphocyte # 1.17 X10^3/ul (0.83-4.51); Lymphocyte % 12.3 % (19-41); Mean Corp Hgb Conc 34.3 g/dL (32-36); Mean Corpuscular Hgb 31.5 pg (27.0-32.0); Mean Corpuscular Volume 91.9 fL (81-99); Mean Platelet Vol. 7.9 fl (6.2-12.0); Monocyte# 0.58 X10^3/uL; Monocyte% 6.1 % (0-10); NRBC Flagged by Analyzer 0 % (0-5); Neutrophil # 7.61 X10^3/uL (2.7-7.7); Neutrophil % 80.3 % (47-70); Platelet Count 156 K/mm3 (150-450); RBC Distribution Width CV 13.1 % (11.6-14.6); RBC Distribution Width SD 43.3 fl (35.1-43.9); Red Blood Count 4.06 M/mm3 (4.2-5.4); White Blood Count 9.5 K/mm3 (4.4-11.0)
[2021-02-19 10:58] LABS: Glucose Challenge Gest 1H 50g 101 mg/dL (70-140)
== END ==
PROVIDERS: Referring Provider Obstetrics & Gynecology; Visit Provider Obstetrics & Gynecology
DX: Z13.1 Encounter for screening for diabetes mellitus (principal); Z3A.23 23 weeks gestation of pregnancy
CPT/HCPCS: 36415; 82950; 85025

== ENCOUNTER → 2021-04-24 11:26 | Outpatient (CLI) | payer SELFPAY | PROVIDERS: Visit Provider Obstetrics & Gynecology | DX: Z34.93 Encounter for supervision of normal pregnancy, unspecified, third trimester (principal) | CPT/HCPCS: 87081 ==

== ENCOUNTER → 2021-04-30 12:33 | Outpatient (CLI) | payer SELFPAY | PROVIDERS: Referring Provider Obstetrics & Gynecology; Visit Provider Obstetrics & Gynecology | DX: Z34.80 Encounter for supervision of other normal pregnancy, unspecified trimester (principal) | CPT/HCPCS: 87635; U0005; U0003 ==

== ENCOUNTER 2021-05-11 01:50 | Inpatient (IN) | payer SELFPAY ==
[2021-05-11] VITALS (23 sets, daily range): BP systolic 105–138; BP diastolic 60–73; PULSE 83–121; RESP 16; TEMP 36.6–37.1; O2SAT 82–100; BMI 26.2
--- NOTE | 2021-05-11 04:22 | HP.PCM.OB_ITS ---
HPI - General General Date of Admission: 05/11/21 HPI Narrative LISA DUFF, is a 25 F who presents in active labor and delivered precipitously without complication. 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 Date Name GA/Weeks Outcome Route Bth Weight Gen Labor Lgth Anesthesia Del Locatn Provider FOB 08/18/19 Nirmal 37 live - full term 7lbs 5oz Male 12 hours none [facility] Kristopher Delivery Date: 08/18/19 no complications Sonali Gupta Visit Details Expected Delivery Route/Plan Labor Preferences- CB/BF classes: no labor support person: Kristopher labor intervention preferences: nonspecific pain management options preferred: limited intervention cut cord/dad catch: cord : yes PP control planned: condom discussed possible routes of delivery and associated risks: [] special requests: [] Plans covid status: non immune, counseled regarding risk of covid in vs vaccination and declined vaccination flu vaccine: na tdap vaccine: declines rhogam: na LARC form signed: yes movement and labor precautions reviewed. Problem list reviewed and updated with the most current plan of care details and appropriate orders placed. Relevant counseling for the gestational age provided. Continue routine care and follow up unless otherwise noted in visit notes/problem list details OB Flowsheet Initial Weight: 125 lb Date -?-?-?-?-?-?-?-?-?-?-?-?- EGA Weight BP Urine Prot -?-?-?-?-?-?-?-?-?-?-?-?- Glucose FHR FuHt Pres Dilation -?-?-?-?-?-?-?-?-?-?-?-?- Effaced St Visit Note 10/13/20 -?-?-?-?-?-?-?-?-?-?-?-?- 8w 5d 125 lb (+0 oz) 110/76 -?-?-?-?-?-?-?-?-?-?-?-?- 168 -?-?-?-?-?--?-?-?-?-?-?-?- SM- CRL cons wit h LMP SM- CRL 1.7cm cons with LMP 11/13/20 -?-?-?-?-?-?-?-?-?-?-?-?- 13w 1d 129 lb (+4 lb) 102/84 Negative -?-?-?-?-?-?-?-?-?-?-?-?- Negative 150 -?-?-?-?-?-?-?-?-?-?-?-?- SM- no vb daina sue fatigue 12/25/20 -?-?-?-?-?-?-?-?-?-?-?-?- 19w 1d 132 lb 8 oz (+7 lb 8 oz) 110/60 Negative -?-?-?-?-?-?-?-?-?-?-?-?- Negative 146 -?-?-?-?-?-?-?-?-?-?-?-?- MH-No VB, LOF. Good FM. Had anatomy US today. 01/23/21 -?-?-?-?-?-?-?-?-?-?-?-?- 23w 2d 135 lb (+10 lb) 102/72 Negative -?-?-?-?-?-?-?-?-?-?-?-?- Negative -?-?-?-?-?-?-?-?-?-?-?-?- 02/19/21 -?-?-?-?-?-?-?-?-?-?-?-?- 27w 1d 142 lb 4 oz (+17 lb 4 oz) 118/78 Negative -?-?-?-?-?-?-?-?-?-?-?-?- Negative 135 27 -?-?-?-?-?-?-?-?-?-?-?-?- GP - no LOF, VB, DFM, ctx. 28w labs done today. Hb nl. GCT pending. 03/10/21 -?-?-?-?-?-?-?-?-?-?-?-?- 29w 6d 146 lb 2 oz (+21 lb 2 oz) 104/62 Negative -?-?-?-?-?-?-?-?-?-?-?-?- Negative 142 29 -?-?-?-?-?-?-?-?-?-?-?-?- MH-No VB, LOF. [facility] ood . [facility]. 03/27/21 -?-?-?-?-?-?-?-?-?-?-?-?- 32w 2d 146 lb 3 oz (+21 lb 3 oz) 98/70 Negative -?-?-?-?-?-?-?-?-?-?-?-?- Negative 140 32 -?-?-?-?-?-?-?-?-?-?-?-?- GP - no LOF, VB, DFM, ctx. Denies complaints. 04/09/21 -?-?-?-?-?-?-?-?-?-?-?-?- 34w 1d 148 lb (+23 lb) 120/60 Negative -?-?-?-?-?-?-?-?-?-?-?-?- Negative 140 34 -?-?-?-?-?-?-?-?-?-?-?-?- SM- no vb lof go od fm no regular ctx 04/24/21 -?-?-?-?-?-?-?-?-?-?-?-?- 36w 2d 150 lb 4 oz (+25 lb 4 oz) 120/70 Negative -?-?-?-?-?-?-?-?-?-?-?-?- Negative 155 36 Cephalic 4 -?-?-?-?-?-?-?-?-?-?-?-?- 70 -2 GP - no LO F, VB, DFM, ctx. GBS collected. Verified position on US 04/30/21 -?-?-?-?-?-?-?-?-?-?-?-?- 37w 1d 151 lb 4 oz (+26 lb 4 oz) 120/82 Negative -?-?-?-?-?-?-?-?-?-?-?-?- Negative 140 37 Cephalic 5 -?-?-?-?-?-?-?-?-?-?-?-?- 80 -1 GP - no LO F, VB, dFM, ctx. COVID testing done today. 05/08/21 -?-?-?-?-?-?-?-?-?-?-?-?- 38w 2d 151 lb 8 oz (+26 lb 8 oz) 114/70 Negative -?-?-?-?-?-?-?-?-?-?-?-?- Negative 140 38 Cephalic -?-?-?-?-?-?-?-?-?-?-?-?- SM- no vb lof go od fm no reuglar ctx 05/11/21 -?-?-?-?-?-?-?-?-?-?-?-?- 38w 5d 147 lb 11.355 oz (+22 lb 11.355 oz) -?-?-?-?-?-?-?-?-?-?-?-?- -?-?-?-?-?-?-?-?-?-?-?-?- NST FHR Rate Baby A Baseline: 140 Variability:: Moderate Accelerations:: 15 x 15 Decelerations:: None NST Reactive:: Yes FHR Category:: Category I Uterine Activity:: q3-5 ROS Constitutional Constitutional: Reports systems reviewed and no addt'l complaints, except as documented ENT HEENT: Reports systems reviewed and no addt'l complaints, except as documented Cardiovascular Cardiovascular: Reports systems reviewed and no addt'l complaints, except as documented Respiratory/Chest Respiratory/Chest: Reports systems reviewed and no addt'l complaints, except as documented Gastrointestinal Gastrointestinal: Reports systems reviewed and no addt'l complaints, except as documented and nausea; Denies abdominal pain Genitourinary Genitourinary: Reports systems reviewed and no addt'l complaints, except as documented, contractions Details: present and frequency (regular ) and movement Details: present Musculoskeletal Musculoskeletal: Reports systems reviewed and no addt'l complaints, except as documented Integumentary Integumentary: Reports as per HPI Neurologic Neurologic: Reports systems reviewed and no addt'l complaints, except as documented Endocrine Endocrinology: Reports systems reviewed and no addt'l complaints, except as documented Vital Signs Vital Signs Vital Signs: Weight Weight: 147 lb 11.355 oz Body Mass Index (BMI) 26.2 Physical Exam Const alert, oriented x3 and healthy appearing Constitutional Narrative: uncomfortable with contractions HEENT normocephalic and moist oral mucous membranes Head and Scalp: atraumatic Neck full ROM, no lymphadenopathy, supple and thyroid normal General: trachea midline Thyroid: thyroid normal Lymph Lymphatic: no lymphadenopathy noted Chest inspection of chest normal Resp normal respiratory effort Cardio regular rate GI normal to inspection, nondistended, normoactive bowel sounds, soft to palpation and non-tender Inspection: gravid external exam normal Bimanual Exam - Vag & Uterus: uterus non-tender Manual OB Exam: estimated gestational size appropriate, presentation cephalic, dilated, effaced and station Extremity normal to inspection General Extremity: Negative for edema Skin no rashes or lesions noted Neuro deep tendon reflexes 2+ bilaterally Motor Exam: strength 5/5 throughout and clonus absent Psych mental status grossly normal Labs Labs Labs: Blood Type A POSITIVE Antibody Screen NEGATIVE Hct 37.3 % (37-47) Hgb 12.8 g/dL (12.0-15.0) Obstetrics US Rubella IgG Antibody Reactive (Nonreactive) Hep Bs Antigen Non-Reactive (Nonreactive) HIV 1&2 Antibody Non-Reactive (Nonreactive) C.trachomatis DNA (PCR) Negative (Negative) Glucose 1 Hr 50 gm 101 mg/dL (70-140) Group B Strep DNA Negative (Negative) Rhogam given: No Miscellaneous Test Assessment & Plan (1) : QUALIFIERS: Weeks of gestation: 38 weeks Qualified Code(s): Z3A.38 - 38 weeks gestation of COMMENT: declined genetic, NTD, and carrier screening. Anatomy US normal other than choroid plexus cyst. NIPT recommended. plan RPR, HIV, HepBC @ delivery. Neg GBS (2) Supervision of other normal : COMMENT: PRR (SP labs) JAKE: 05/20/21 girl (surprise) PC: Nirmal Spouse: Kristopher (3) Choroid plexus cyst of fetus affecting care of mother, antepartum: QUALIFIERS: Fetus number: single or unspecified fetus Qualified Code(s): O35.0XX0 - Maternal care for (suspected) central nervous system malformation in fetus, not applicable or unspecified COMMENT: 3x4mm. fu us stable. (4) Tetanus, diphtheria, and acellular pertussis (Tdap) vaccination declined: PLAN: admit labor delivered preciptiously
--- NOTE | 2021-05-11 04:23 | EX.PCM.OBRPT ---
Assessment & Plan (1) Tetanus, diphtheria, and acellular pertussis (Tdap) vaccination declined: (2) Choroid plexus cyst of fetus affecting care of mother, antepartum: QUALIFIERS: Fetus number: single or unspecified fetus Qualified Code(s): O35.0XX0 - Maternal care for (suspected) central nervous system malformation in fetus, not applicable or unspecified COMMENT: 3x4mm. fu us stable. (3) Supervision of other normal : COMMENT: PRR (SP labs) JAKE: 05/20/21 girl (surprise) PC: Nirmal Spouse: Kristopher (4) : QUALIFIERS: Weeks of gestation: 38 weeks Qualified Code(s): Z3A.38 - 38 weeks gestation of COMMENT: declined genetic, NTD, and carrier screening. Anatomy US normal other than choroid plexus cyst. NIPT recommended. plan RPR, HIV, HepBC @ delivery. Neg GBS (5) Vaginal delivery: COMMENT: SM 39 girl Abriella precipitous Maternal Data Information JAKE Calculator Estimated Delivery Date Method Current WG Current Estimate 05/20/21 LMP (Certain) 38w 5d Vaginal Delivery Operative Information Date of Procedure: 05/11/21 Pre-Operative Diagnosis: IAL Post-Operative Diagnosis: same Surgery / Procedure Performed: Spontaneous Vaginal Delivery Type of Anesthesia: None Special Medications: none Estimated Blood Loss: 100 Fluids Replaced: crystalloid Findings Description of Procedure: Patient began pushing and delivered the head in the DIGNA presentation. The head was delivered atraumatically and a loose nuchal cord ?1 was identified and the infant delivered through without complication. The anterior and posterior shoulders delivered without complication followed by the rest of the and the was placed on the maternal abdomen. Delayed cord clamping was employed for approximately 60 seconds. Cord was clamped and cut and gentle traction was applied to the cord and the placenta delivered spontaneously immediately following it was noted to be intact with three-vessel cord. The perineum and vagina were inspected and noted to have no laceration. EBL was 100 cc. Patient and infant tolerated delivery well. Presentation: DIGNA Amniotic Membrane Rupture Type: Spontaneous Amniotic Fluid Description: Clear Placental Delivery Description: Spontaneous Placenta Disposition: [facility] Cord Vessel Description: 3 Vessels Cord Entanglement: Around neck x 1, loose Infant A Gender: Female Delayed Cord Clamping: Yes Post Vaginal Delivery Medications Given After Delivery: IV Pitocin Episiotomy Description: None Laceration: None Complication Complications: None Procedures Urinary/Genital [id number]: [id number] Vaginal Delivery [facility]
--- NOTE | 2021-05-11 04:25 | PCM.DC ---
Discharge Instructions Diet Discharge Diet: No restrictions Activity Discharge Activity: Return to Normal Activity, May Not Drive (while taking narcotic pain medications.) and May Shower May resume sexual activity in: 4-6 weeks Dressing / Incision Call your doctor if your incision/area has: Continuous Slow Oozing, Sudden Increased Bleeding, Increased Pain/ Swelling, Increased Redness and Foul Smelling Discharge Follow Up Care Please Follow Up With: Yue May MD When: Call [phone] to make an appointment with your doctor in 6 weeks. If you had elevated blood pressure or 4th degree laceration, you will need to be seen in 2 weeks. Test Results: Test results from this visit will be discussed in further detail at your follow-up appointment, if applicable. Discharge Plan Admission Admit Date/Time: 05/11/21 01:50 Primary Reason for Your Visit: vaginal delivery Attending Provider: Yue May Primary Care Provider: Hannah Bella Primary Discharge Orders/Prescriptions Prescriptions: No Action prenat.vits,keshia,[id number]-bgqn-[id number] Tablet 1 tab PO DAILY RF: 0 Referrals / Follow Up: Care Physician,No Primary [Primary Care Provider] - Disposition Disposition (needs filled in before D/C Order can be placed): Home, Self Care
[2021-05-11 04:58] LABS: Absolute Lymphocyte Count 0.94 X10^3/uL (0.83-4.51); Absolute Neutrophil Count 18.1 X10^3/uL (2.0-7.7); Basophil# 0.03 X10^3/uL; Basophil% 0.1 % (0-1); Hematocrit 36.2 % (37-47); Hemoglobin 12.9 g/dL (12.0-15.0); Lymphocyte # 0.94 X10^3/ul (0.83-4.51); Lymphocyte % 4.7 % (19-41); Mean Corp Hgb Conc 35.6 g/dL (32-36); Mean Corpuscular Volume 89.8 fL (81-99); Mean Platelet Vol. 8.7 fl (6.2-12.0); Monocyte# 0.91 X10^3/uL; Monocyte% 4.5 % (0-10); NRBC Flagged by Analyzer 0 % (0-5); Neutrophil # 18.12 X10^3/uL (2.7-7.7); Neutrophil % 90.4 % (47-70); Platelet Count 136 K/mm3 (150-450); RBC Distribution Width CV 12.8 % (11.6-14.6); RBC Distribution Width SD 41.6 fl (35.1-43.9); Red Blood Count 4.03 M/mm3 (4.2-5.4); White Blood Count 20.1 K/mm3 (4.4-11.0)
[2021-05-11 06:32] LABS: Amphetamine Urine VISTA NEGATIVE (<1000 ng/mL); Barbiturate Urine VISTA NEGATIVE (< 200 ng/mL); Benzodiazepine Urine VISTA NEGATIVE (< 200 ng/mL); Cocaine Urine VISTA NEGATIVE (< 300 ng/mL); Ecstacy Urine VISTA NEGATIVE (< 500 ng/mL); Methadone Urine VISTA NEGATIVE (< 300 ng/mL); PCP Urine VISTA NEGATIVE (< 25 ng/mL); THC Urine VISTA NEGATIVE (< 50 ng/mL); Vista UDS pH Range 7
[2021-05-11 11:10] LABS: Syphilis Antibodies Non-reactive
[2021-05-11 11:33] LABS: HIV - WCH Non-Reactive (Nonreactive); Hepatitis B Surface Antigen Non-Reactive (Nonreactive); Hepatitis C Antibody Non-Reactive (Nonreactive)
[2021-05-11 14:45] LABS: Chlamydia Trachomatis by PCR Negative (Negative); Neisserai gonorrhoeae by PCR Negative (Negative); Probe Check PASS; Sample Adequacy Control PASS; Specimen Processing Control PASS
[2021-05-11] MEDS: Naproxen 500 MG Tablet PO (20:17)
[2021-05-12 01:05] VITALS: BP 105/63; PULSE 94; RESP 16; TEMP 36.7; O2SAT 96
--- NOTE | 2021-05-12 05:05 | NURSING ---
All documentation by student Ivory Larson reviewed by this RN Stephon.
--- NOTE | 2021-05-12 08:32 | PCM.PN.OB ---
Subjective Subjective Patient doing well without complaints. Tolerating PO. Ambulating and voiding without difficulty. Feeding well. Denies chest pain, shortness of breath, calf pain/swelling, fevers, chills, lightheadedness. Objective Data Objective Data Vital Signs: Vital Signs Temp Pulse Resp BP Pulse Ox 98.1 F 94 16 105/63 96 05/12/21 01:05 05/12/21 01:05 05/12/21 01:05 05/12/21 01:05 05/12/21 01:05 Oxygen Delivery Method Room Air Weight: 147 lb 11.355 oz Body Mass Index (BMI) 26.2 Intake & Output: Intake and Output for Last 24 Hours 05/10/21 05/11/21 05/12/21 23:59 23:59 23:59 Output Total 800 / 800 Balance -800 / -800 Lab / Micro Data Result Diagrams: 05/11/21 04:35 Labs: Laboratory Results - last 24 hr 05/11/21 04:35: Syphilis Total Ab Non-reactive 05/11/21 04:35: Hep Bs Antigen Non-Reactive, Hepatitis C Antibody Non-Reactive, HIV 1&2 Antibody Non-Reactive 05/11/21 05:45: Chlam trachomat DNA PCR Cancelled, N.gonorrhoeae DNA (PCR) Cancelled 05/11/21 12:00: Chlam trachomat DNA PCR Negative, N.gonorrhoeae DNA (PCR) Negative Physical Exam Const alert and oriented x3 HEENT normocephalic Eyes PERRL Neck full ROM Resp normal respiratory effort GI soft to palpation GI Narrative: FF below U Assessment & Plan (1) Vaginal delivery: COMMENT: LARISSA 39 girl Abriella precipitous PLAN: s/p PPD #1 1. routine post delivery care 2. breast feeding- support given 3. rh positive 4. rubella immune
[2021-05-12 09:00] VITALS: BP 106/71; PULSE 80; RESP 16; TEMP 36.2
== END 2021-05-12 10:00 | disposition home or self-care (01) | DRG 807 ==
PROVIDERS: Admitting Provider Obstetrics & Gynecology; Visit Provider Obstetrics & Gynecology
DX: O62.3 Precipitate labor (principal); Z37.0 Single live birth; O69.81X0 Labor and delivery complicated by cord around neck, without compression, not applicable or unspecified; O35.0XX0 Maternal care for (suspected) central nervous system malformation in fetus, not applicable or unspecified; Z3A.38 38 weeks gestation of pregnancy
CPT/HCPCS: 59050; 80307; 85025; 86703; 86780; 86803; 86850; 86900; 86901; 87340; 87491; 87591; 99218; G0378

== ENCOUNTER → 2022-09-16 | Outpatient (CLI) | payer SELFPAY ==
[2022-09-16 10:17] LABS: Absolute Lymphocyte Count 1.39 X10^3/uL (0.83-4.51); Basophil# 0.02 X10^3/uL; Basophil% 0.2 % (0-1); Eosinophil# 0.03 X10^3/uL; Eosinophils% 0.4 % (0-5); Hematocrit 38.9 % (37-47); Hemoglobin 13.3 g/dL (12.0-15.0); Lymphocyte # 1.39 X10^3/ul (0.83-4.51); Lymphocyte % 16.8 % (19-41); Mean Corp Hgb Conc 34.2 g/dL (32-36); Mean Corpuscular Hgb 31.1 pg (27.0-32.0); Mean Corpuscular Volume 91.1 fL (81-99); Mean Platelet Vol. 8.8 fl (6.2-12.0); Monocyte# 0.73 X10^3/uL; Monocyte% 8.8 % (0-10); NRBC Flagged by Analyzer 0 % (0-5); Neutrophil # 5.96 X10^3/uL (2.7-7.7); Neutrophil % 72.1 % (47-70); Platelet Count 172 K/mm3 (150-450); RBC Distribution Width CV 12.8 % (11.6-14.6); RBC Distribution Width SD 41.7 fl (35.1-43.9); Red Blood Count 4.27 M/mm3 (4.2-5.4); White Blood Count 8.3 K/mm3 (4.4-11.0)
[2022-09-16 11:25] LABS: HIV - WCH Non-Reactive (Nonreactive); Hepatitis B Surface Antigen Non-Reactive (Nonreactive); Hepatitis C Antibody Non-Reactive (Nonreactive); Rubella IgG Reactive (Nonreactive); Syphilis Antibodies Non-reactive
[2022-09-17 20:07] LABS: Chlamydia By Nucleic Acid AMP Negative (Negative)
[2022-09-17 22:07] LABS: Gonococcus By Nucleic Acid AMP Negative (Negative)
[2022-09-22 18:50] LABS: HPV APTIMA, High Risk Negative (Negative)
== END | disposition home or self-care (01) ==
PROVIDERS: Referring Provider Obstetrics & Gynecology; Visit Provider Obstetrics & Gynecology
DX: Z34.90 Encounter for supervision of normal pregnancy, unspecified, unspecified trimester (principal)
CPT/HCPCS: 36415; 85025; 86703; 86762; 86780; 86803; 86850; 86900; 86901; 87086; 87340; 87491; 87591; 87624; 88175; G0145

== ENCOUNTER → 2022-11-15 | Outpatient (CLI) | payer SELFPAY ==
--- NOTE | 2022-11-15 09:38 | US_ITS ---
INDICATION: anatomy EXAMINATION: Ultrasound US OB Greater Than 14 Weeks TECHNIQUE: Transabdominal pelvic ultrasound was performed. COMPARISON: None. LMP: Unknown. Beta-hCG: Unknown. Provided EGA: None. FINDINGS: INTRAUTERINE GESTATION(s): Single. ESTIMATED GESTATIONAL AGE: 19 weeks 0 days ESTIMATED DUE DATE (JAKE): 04/11/2023 HEART MOTION is 144 bpm. AMNIOTIC FLUID LARGEST POCKET 6.2 X 7.1 CM. ESTIMATED WEIGHT: 266 g Percentile 34%. BIOPHYSICAL PROFILE (BPP): Not assessed. PRESENTATION: Variable. PLACENTA: Anterior. There is no placenta previa or abruption. Not low-lying. CERVIX: The cervix is closed. Cervical length 3.7 cm. MATERNAL OVARIES: No adnexal masses. FREE FLUID: None. Numerous placental lakes are noted. US/OB Anatomy w/ Transvaginal IMPRESSION: Single live intrauterine of 19 weeks 0 days No acute abnormality. Electronically Signed: Sami Vo MD, VIOLA at 18:59 EDT ,
== END | disposition home or self-care (01) ==
LOC: US 09:37
PROVIDERS: Referring Provider Nurse Practitioner Women's Health; Visit Provider Nurse Practitioner Women's Health
DX: Z34.90 Encounter for supervision of normal pregnancy, unspecified, unspecified trimester (principal)
CPT/HCPCS: 76805; 76817

== ENCOUNTER → 2023-01-11 | Outpatient (CLI) | payer SELFPAY ==
[2023-01-11 11:02] LABS: Absolute Lymphocyte Count 1.49 X10^3/uL (0.83-4.51); Absolute Neutrophil Count 8.6 X10^3/uL (2.0-7.7); Basophil# 0.04 X10^3/uL; Basophil% 0.4 % (0-1); Eosinophil# 0.04 X10^3/uL; Eosinophils% 0.4 % (0-5); Hematocrit 36.3 % (37-47); Hemoglobin 12.6 g/dL (12.0-15.0); Lymphocyte # 1.49 X10^3/ul (0.83-4.51); Lymphocyte % 13.7 % (19-41); Mean Corp Hgb Conc 34.7 g/dL (32-36); Mean Corpuscular Hgb 31.3 pg (27.0-32.0); Mean Corpuscular Volume 90.3 fL (81-99); Mean Platelet Vol. 8.1 fl (6.2-12.0); Monocyte% 5.5 % (0-10); NRBC Flagged by Analyzer 0 % (0-5); Neutrophil # 8.58 X10^3/uL (2.7-7.7); Neutrophil % 79.2 % (47-70); Platelet Count 169 K/mm3 (150-450); RBC Distribution Width CV 13.2 % (11.6-14.6); RBC Distribution Width SD 42.9 fl (35.1-43.9); Red Blood Count 4.02 M/mm3 (4.2-5.4); White Blood Count 10.8 K/mm3 (4.4-11.0)
[2023-01-11 11:22] LABS: Glucose Challenge Gest 1H 50g 117 mg/dL (70-140)
[2023-01-11 11:55] LABS: HIV - WCH Non-Reactive (Nonreactive); Syphilis Antibodies Non-reactive
== END | disposition home or self-care (01) ==
LOC: PAVLAB 10:26
PROVIDERS: Visit Provider Registered Nurse
DX: Z34.90 Encounter for supervision of normal pregnancy, unspecified, unspecified trimester (principal)
CPT/HCPCS: 36415; 82950; 85025; 86703; 86780

== ENCOUNTER → 2023-03-16 | Outpatient (CLI) | payer SELFPAY | END | disposition home or self-care (01) | LOC: OPUS 03-24 11:29 | PROVIDERS: Referring Provider Advanced Practice Midwife; Visit Provider Advanced Practice Midwife | DX: Z34.90 Encounter for supervision of normal pregnancy, unspecified, unspecified trimester (principal) | CPT/HCPCS: 87081 ==

== ENCOUNTER 2023-03-17 13:30 | Inpatient (IN) | payer SELFPAY ==
[2023-03-17] VITALS (62 sets, daily range): BP systolic 101–143; BP diastolic 54–77; PULSE 90–160; RESP 16; TEMP 36.3–37.2; O2SAT 97–100; BMI 27.0
[2023-03-17] MEDS: Lactated Ringers 1,000 ML 200 ML IV (13:50)
[2023-03-17] MEDS: LACTATED RINGERS 500 ML 999 ML IV ×2 (13:55→16:22)
[2023-03-17 14:06] LABS: Absolute Lymphocyte Count 1.54 X10^3/uL (0.83-4.51); Absolute Neutrophil Count 11.1 X10^3/uL (2.0-7.7); Basophil# 0.04 X10^3/uL; Basophil% 0.3 % (0-1); Eosinophil# 0.05 X10^3/uL; Eosinophils% 0.4 % (0-5); Hematocrit 38.3 % (37-47); Hemoglobin 12.9 g/dL (12.0-15.0); Lymphocyte # 1.54 X10^3/ul (0.83-4.51); Lymphocyte % 11.3 % (19-41); Mean Corp Hgb Conc 33.7 g/dL (32-36); Mean Corpuscular Hgb 30.3 pg (27.0-32.0); Mean Corpuscular Volume 89.9 fL (81-99); Mean Platelet Vol. 9.5 fl (6.2-12.0); Monocyte# 0.83 X10^3/uL; Monocyte% 6.1 % (0-10); NRBC Flagged by Analyzer 0 % (0-5); Neutrophil # 11.07 X10^3/uL (2.7-7.7); Neutrophil % 81.2 % (47-70); Platelet Count 162 K/mm3 (150-450); RBC Distribution Width CV 12.7 % (11.6-14.6); RBC Distribution Width SD 41.2 fl (35.1-43.9); Red Blood Count 4.26 M/mm3 (4.2-5.4); White Blood Count 13.6 K/mm3 (4.4-11.0)
[2023-03-17 14:22] LABS: International Normalized Ratio 0.9; Prothrombin Time (Protime)PT. 12.1 SECONDS (11.7-14.9)
[2023-03-17 14:23] LABS: Partial Thromboplast Time 22.5 Seconds (24.1-36.2)
[2023-03-17 14:54] LABS: Syphilis Antibodies Non-reactive
[2023-03-17] MEDS: fentaNYL-bupivacaine (epidural) 100 ML BAG EPIDURAL (15:19)
--- NOTE | 2023-03-17 16:30 | PLAC_PTH ---
PATIENT: LISA DUFF LOC: WP U#:[id number] AGE/SX: 27/F ROOM: WP007 RE03/17/[address]: Dr. Yue May MD : 1995 BED: 1 DIS: 03/19/2023 SPEC #: [id number] RECD: 03/17/23 19:47 STATUS: CAROL BECERRA #: [id number] LIO: 03/17/23 16:[address]: Yue May DEPT: SURGICAL PATHOLOGY RECD BY: Radha Bower ENTERED: 03/18/23 08:06 SP TYPE: PLACENTA OTHR DR: No Primary Care Phys Tissues: Placenta, NOS Procedures: Surgery Specimen Level V HEADER OPERATION: Vaginal delivery PRE-OP DIAGNOSIS: Abruption TISSUE SUBMITTED: Placenta MICROSCOPIC DIAGNOSIS Placenta: Placental disc - third trimester placenta (456 gm). Membranes - no pathologic diagnosis. Umbilical cord - three blood vessels and no pathologic diagnosis. See comment. SJ:shorty 03/22/2023 COMMENT The blood clots noted at the peripheral portion of the placenta may represent site of abruption. MICROSCOPIC DESCRIPTION Slides are reviewed. GROSS DESCRIPTION SPECIMEN: PLACENTA / CLINICAL INFORMATION: A. Weight: 2.555 kg B. Gestational Age: 37 weeks C. Sex: Male PLACENTAL WEIGHT (POST FIXATION): 456 gm PLACENTAL DIMENSIONS: 15.0 x 15.0 x 3.0 cm PLACENTAL SHAPE: Usual ovoid PLACENTAL WEIGHT FOR GESTATIONAL AGE: Within 10-99th percentile MEMBRANES - Present A. Insertion: Marginal B. Site of rupture from edge: At edge of placental disc C. Color of membrane: [place] D. Abnormalities: None UMBILICAL CORD - Present A. Color: [place] B. Insertion: Paracentral C. Length: 26.0 cm D. Diameter: 1.0 cm E. Number of vessels: Three F. Abnormalities: None PLACENTAL DISC - Present A. Color of surface: [place] B. surface abnormalities: None C. Maternal cotyledons: Intact with minimal tears D. Attached retro placental clot: No clot E. Cut surface: Dark red and spongy F. Lesions: None G. Separate clot: A few blood clots are noted in the peripheral portion of the placenta. SECTIONS SUBMITTED: 1. Membrane roll 2. Cord, maternal end 3. Cord, end 4. Placental disc, and maternal surfaces 5. Placental disc, and maternal surfaces 6. Placental disc, and maternal surfaces SJ:shorty 03/21/2023 TC:5 CPT: 23442
[2023-03-17] MEDS: Oxytocin 15 Units/NS 250ml 15 UNITS/250 ML IV.SOLN 83 UNITS IV (16:38)
[2023-03-17] MEDS: Oxytocin 10 UNITS/ML Vial IM (16:38)
--- NOTE | 2023-03-17 17:38 | HP.PCM.OB_ITS ---
HPI - General General Date of Admission: 03/17/23 HPI Narrative LISA DUFF, is a 27 F who presents with vaginal bleeding and regular ctx 5 cm dilated, ROM bloody fluid PPROM. no known trauma or complications Maternal Data Information JAKE Calculator Estimated Delivery Date Method Current WG Current Estimate 04/10/23 Ultrasound #1 36w 5d Other Estimates 04/17/23 LMP (Certain) 35w 5d PFSH PFS Medical History (Updated 03/18/23 @ 07:[address] Yue May MD) Infertility Placental abnormality Home Medications prenat.vits,keshia,ucx-evkw-fahwu 1 tab PO DAILY Check with primary doctor 02/06/19 [History Last Taken 03/16/23 08:00 1 TAB] Lactobacillus acidophilus 10 billion cell capsule (Probiotic) 10,000 mmu cells PO DAILY preventative 03/17/23 [History Last Taken 03/16/23 08:00 10,000 mmu cells] Allergy/AdvReac Type Severity Reaction Status Date / Time No Known Allergies Allergy Verified 03/17/23 13:59 Family History Grandmother Cancer skin Surgical History History of appendectomy [place] teeth extracted Social History adopted: No household members: spouse and children housing: house number of children: 2 current occupational status: unemployed 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 current occupational exposures/hazards: No pets and animals: No history of recent travel: Yes ([facility] in aug) out of country: Yes sexually active: Yes Smoking Status: Never smoker second hand exposure: No alcohol intake: never substance use type: does not use well-balanced diet: daily or most days caffeine: Yes Type: coffee Number of servings: 2 eating out: 1-3 times/week what type of physical activity do you participate in: walking seatbelt use: always do you feel safe at home: Yes 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 Date Name GA/Weeks Outcome Route Bth Weight Gen Labor Lgth Anesthesia Del Locatn Provider FOB 08/18/19 Nirmal 37 live - full term 7lbs 5oz Male 12 hours none [facility] Kristopher 05/11/21 Nadia 39 live - full term 8lbs 7oz Female none [facility] Delivery Date: 08/18/19 Last Updated by: Sonali Gupta no complications Visit Details Expected Delivery Route/Plan Labor Preferences- CB/BF classes: declines labor support person: [] labor intervention preferences: [] pain management options preferred: unmedicated cut cord/dad catch: [] : wants PP control planned: [] discussed possible routes of delivery and associated risks: [] special requests: [] Plans Covid status: discussed Flu vaccine: discussed Tdap vaccine: [] Rhogam: [] LARC form signed: [] Problem list reviewed and updated with the most current plan of care details and appropriate orders placed. Relevant counseling for the gestational age provided. Continue routine care and follow up unless otherwise noted in visit notes/problem list details OB Flowsheet Initial Weight: 130 lb Date -?-?-?-?-?-?-?-?-?-?-?-?- EGA Weight BP Urine Prot -?-?-?-?-?-?-?-?-?-?-?-?- Glucose FHR FuHt Pres Dilation -?-?-?-?-?-?-?-?-?-?-?-?- Effaced St Visit Note 09/16/22 -?-?-?-?-?-?-?-?-?-?-?-?- 10w 4d 130 lb 8 oz (+8 oz) 110/74 -?-?-?-?-?-?-?-?-?-?-?-?- 170 -?-?-?-?-?-?-?-?-?-?-?-?- SM- CRL 3.3 cm N OT consistent with LMP but cons with ovulation 10/13/22 -?-?-?-?-?-?-?-?-?-?-?-?- 14w 3d 136 lb 8 oz (+6 lb 8 oz) 112/72 Negative -?-?-?-?-?-?-?-?-?-?-?-?- Negative 164 -?-?-?-?-?-?-?--?-?-?-?-?- MH-No Ethel, janette chacko. Some nausea in evenings. Will try B6 and unisom. 11/15/22 -?-?-?-?-?-?-?-?-?-?-?-?- 19w 1d 140 lb 2 oz (+10 lb 2 oz) 118/83 -?-?-?-?-?-?-?-?-?-?-?-?-
--- NOTE | 2023-03-17 17:38 | PCM.HP.OB ---
HPI - General General Date of Admission: 03/17/23 HPI Narrative LISA DUFF, is a 27 F who presents with vaginal bleeding and regular ctx 5 cm dilated, ROM bloody fluid PPROM. no known trauma or complications Maternal Data Information JAKE Calculator Estimated Delivery Date Method Current WG Current Estimate 04/10/23 Ultrasound #1 36w 5d Other Estimates 04/17/23 LMP (Certain) 35w 5d PFSH PFS Medical History (Updated 03/18/23 @ 07:[address] Yue May MD) Infertility Placental abnormality Home Medications prenat.vits,keshia,uok-lpyj-gozld 1 tab PO DAILY Check with primary doctor 02/06/19 [History Last Taken 03/16/23 08:00 1 TAB] Lactobacillus acidophilus 10 billion cell capsule (Probiotic) 10,000 mmu cells PO DAILY preventative 03/17/23 [History Last Taken 03/16/23 08:00 10,000 mmu cells] Allergy/AdvReac Type Severity Reaction Status Date / Time No Known Allergies Allergy Verified 03/17/23 13:59 Family History Grandmother Cancer skin Surgical History History of appendectomy [place] teeth extracted Social History adopted: No household members: spouse and children housing: house number of children: 2 current occupational status: unemployed 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 current occupational exposures/hazards: No pets and animals: No history of recent travel: Yes ([facility] in aug) out of country: Yes sexually active: Yes Smoking Status: Never smoker second hand exposure: No alcohol intake: never substance use type: does not use well-balanced diet: daily or most days caffeine: Yes Type: coffee Number of servings: 2 eating out: 1-3 times/week what type of physical activity do you participate in: walking seatbelt use: always do you feel safe at home: Yes 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 Date Name GA/Weeks Outcome Route Bth Weight Gen Labor Lgth Anesthesia Del Locatn Provider FOB 08/18/19 Nirmal 37 live - full term 7lbs 5oz Male 12 hours none [facility] Kristopher 05/11/21 Nadia 39 live - full term 8lbs 7oz Female none [facility] Delivery Date: 08/18/19 Last Updated by: Sonali Gupta no complications Visit Details Expected Delivery Route/Plan Labor Preferences- CB/BF classes: declines labor support person: [] labor intervention preferences: [] pain management options preferred: unmedicated cut cord/dad catch: [] : wants PP control planned: [] discussed possible routes of delivery and associated risks: [] special requests: [] Plans Covid status: discussed Flu vaccine: discussed Tdap vaccine: [] Rhogam: [] LARC form signed: [] Problem list reviewed and updated with the most current plan of care details and appropriate orders placed. Relevant counseling for the gestational age provided. Continue routine care and follow up unless otherwise noted in visit notes/problem list details OB Flowsheet Initial Weight: 130 lb Date <del>?</del> EGA Weight BP Urine Prot <del>?</del> Glucose FHR FuHt Pres Dilation <del>?</del> Effaced St Visit Note 09/16/22 <del>?</del> 10w 4d 130 lb 8 oz (+8 oz) 110/74 <del>?</del> 170 <del>?</del> SM- CRL 3.3 cm NOT consistent with LMP but cons with ovulation 10/13/22 <del>?</del> 14w 3d 136 lb 8 oz (+6 lb 8 oz) 112/72 Negative <del>?</del> Negative 164 <del>?</del> MH-No Vb, cramping. Some nausea in evenings. Will try B6 and unisom. 11/15/22 <del>?</del> 19w 1d 140 lb 2 oz (+10 lb 2 oz) 118/83 <del>?</del> 150 <del>?</del> SM- no vb lof good fm no regular ctx 12/13/22 <del>?</del> 23w 1d 143 lb (+13 lb) 111/73 Negative <del>?</del> Negative 150 23 <del>?</del> LC- no vb/ctx/lof. good fm.28 week labs ordered. 01/11/23 <del>?</del> 27w 2d 147 lb 6 oz (+17 lb 6 oz) 111/72 Negative <del>?</del> Negative 146 27 <del>?</del> JV- no lof, vaginal bleeding, or dec fm. declines tdap. normal 28 week labs 02/01/23 <del>?</del> 30w 2d 148 lb 4 oz (+18 lb 4 oz) 100/69 Negative <del>?</del> Negative 140 29 <del>?</del> KW-+fm. no vb/ctx. Larc done. 02/15/23 <del>?</del> 32w 2d 150 lb 6 oz (+20 lb 6 oz) 97/65 <del>?</del> 135 31 <del>?</del> KW-+fm, no lof/vb/ctx. no concerns. Growth US ordered for placental lakes 03/01/23 <del>?</del> 34w 2d 153 lb 4 oz (+23 lb 4 oz) 105/72 <del>?</del> 135 34 <del>?</del> SM- no vb lof good fm no regular ctx SM- no vb lof good fm no regular ctx discussed about placental lakes low risk and measuring well, prefers not to scan which is reasonable fu in 2 week 03/16/23 <del>?</del> 36w 3d 155 lb (+25 lb) 116/80 Negative <del>?</del> Negative 140 36 Cephalic <del>?</del> LC- no vb/ctx/lof. good fm. no concerns.gbs collected NST FHR Rate Baby A Baseline: 140 Variability:: Moderate Accelerations:: 15 x 15 Decelerations:: None NST Reactive:: Yes FHR Category:: Category I Uterine Activity:: q3-5 ROS Constitutional Constitutional: Reports systems reviewed and no addt'l complaints, except as documented ENT HEENT: Reports systems reviewed and no addt'l complaints, except as documented Cardiovascular Cardiovascular: Reports systems reviewed and no addt'l complaints, except as documented Respiratory/Chest Respiratory/Chest: Reports systems reviewed and no addt'l complaints, except as documented Gastrointestinal Gastrointestinal: Reports systems reviewed and no addt'l complaints, except as documented and nausea; Denies abdominal pain Genitourinary Genitourinary: Reports systems reviewed and no addt'l complaints, except as documented, contractions Details: present and frequency (regular ) and movement Details: present Musculoskeletal Musculoskeletal: Reports systems reviewed and no addt'l complaints, except as documented Integumentary Integumentary: Reports as per HPI Neurologic Neurologic: Reports systems reviewed and no addt'l complaints, except as documented Endocrine Endocrinology: Reports systems reviewed and no addt'l complaints, except as documented Vital Signs Vital Signs Vital Signs: 03/17/23 13:44 03/17/23 13:44 03/17/23 15:06 Temperature 98.0 F Temperature Source Temporal Pulse Rate 110 H Blood Pressure BP Systolic BP Diastolic Pulse Ox 03/17/23 15:06 03/17/23 15:11 03/17/23 15:11 Temperature Temperature Source Pulse Rate 96 Blood Pressure BP Systolic BP Diastolic Pulse Ox 100 100 03/17/23 15:13 03/17/23 15:13 03/17/23 15:16 Temperature Temperature Source Pulse Rate 106 H 108 H Blood Pressure 123/77 H BP Systolic 123 BP Diastolic 77 Pulse Ox 03/17/23 15:16 03/17/23 15:18 03/17/23 15:18 Temperature Temperature Source Pulse Rate 109 H Blood Pressure 143/71 H BP Systolic 143 BP Diastolic 71 Pulse Ox 98 03/17/23 15:21 03/17/23 15:21 03/17/23 15:24 Temperature Temperature Source Pulse Rate 117 H Blood Pressure 111/63 BP Systolic 111 BP Diastolic 63 Pulse Ox 99 03/17/23 15:26 03/17/23 15:26 03/17/23 15:28 Temperature Temperature Source Pulse Rate 124 H Blood Pressure 109/64 BP Systolic 109 BP Diastolic 64 Pulse Ox 99 03/17/23 15:28 03/17/23 15:31 03/17/23 15:31 Temperature Temperature Source Pulse Rate 125 H 126 H Blood Pressure BP Systolic BP Diastolic Pulse Ox 99 03/17/23 15:33 03/17/23 15:33 03/17/23 15:34 Temperature Temperature Source Temporal Pulse Rate 125 H Blood Pressure 113/65 BP Systolic 113 BP Diastolic 65 Pulse Ox 03/17/23 15:34 03/17/23 15:38 03/17/23 15:38 Temperature 97.3 F L Temperature Source Pulse Rate 115 H Blood Pressure 117/67 BP Systolic 117 BP Diastolic 67 Pulse Ox 03/17/23 15:39 03/17/23 15:39 03/17/23 15:43 Temperature Temperature Source Pulse Rate 116 H Blood Pressure 109/66 BP Systolic 109 BP Diastolic 66 Pulse Ox 100 03/17/23 15:43 03/17/23 15:44 03/17/23 15:44 Temperature Temperature Source Pulse Rate 101 H 107 H Blood Pressure BP Systolic BP Diastolic Pulse Ox 100 03/17/23 15:49 03/17/23 15:49 03/17/23 15:49 Temperature Temperature Source Pulse Rate 106 H 108 H Blood Pressure 124/55 H BP Systolic 124 BP Diastolic 55 Pulse Ox 03/17/23 15:49 03/17/23 15:53 03/17/23 15:53 Temperature Temperature Source Pulse Rate 144 H Blood Pressure 101/60 BP Systolic 101 BP Diastolic 60 Pulse Ox 100 03/17/23 15:55 03/17/23 15:55 03/17/23 16:00 Temperature Temperature Source Pulse Rate 132 H Blood Pressure 101/54 L BP Systolic 101 BP Diastolic 54 Pulse Ox 100 03/17/23 16:00 03/17/23 16:00 03/17/23 16:00 Temperature Temperature Source Pulse Rate 112 H 123 H Blood Pressure BP Systolic BP Diastolic Pulse Ox 97 03/17/23 16:05 03/17/23 16:05 03/17/23 16:10 Temperature Temperature Source Pulse Rate 139 H 139 H Blood Pressure BP Systolic BP Diastolic Pulse Ox 97 03/17/23 16:10 03/17/23 16:15 03/17/23 16:15 Temperature Temperature Source Pulse Rate 124 H Blood Pressure BP Systolic BP Diastolic Pulse Ox 97 99 03/17/23 16:20 03/17/23 16:20 03/17/23 16:25 Temperature Temperature Source Pulse Rate 140 H 148 H Blood Pressure BP Systolic BP Diastolic Pulse Ox 98 03/17/23 16:25 03/17/23 16:30 03/17/23 16:30 Temperature Temperature Source Pulse Rate 142 H Blood Pressure BP Systolic BP Diastolic Pulse Ox 97 98 03/17/23 16:35 03/17/23 16:35 03/17/23 16:40 Temperature Temperature Source Pulse Rate 123 H 121 H Blood Pressure BP Systolic BP Diastolic Pulse Ox 98 03/17/23 16:40 03/17/23 16:42 03/17/23 16:42 Temperature Temperature Source Pulse Rate 125 H Blood Pressure 116/70 BP Systolic 116 BP Diastolic 70 Pulse Ox 98 03/17/23 16:45 03/17/23 16:45 03/17/23 16:50 Temperature Temperature Source Pulse Rate 114 H 121 H Blood Pressure BP Systolic BP Diastolic Pulse Ox 98 03/17/23 16:50 03/17/23 16:55 03/17/23 16:55 Temperature Temperature Source Pulse Rate 120 H Blood Pressure 108/63 BP Systolic 108 BP Diastolic 63 Pulse Ox 97 03/17/23 16:55 03/17/23 16:55 03/17/23 16:55 Temperature 98.3 F Temperature Source Temporal Pulse Rate Blood Pressure BP Systolic BP Diastolic Pulse Ox 98 03/17/23 17:00 03/17/23 17:00 03/17/23 17:05 Temperature Temperature Source Pulse Rate 160 H 123 H Blood Pressure BP Systolic BP Diastolic Pulse Ox 99 03/17/23 17:05 03/17/23 17:10 03/17/23 17:10 Temperature Temperature Source Pulse Rate 115 H Blood Pressure BP Systolic BP Diastolic Pulse Ox 99 99 03/17/23 17:11 03/17/23 17:11 03/17/23 17:15 Temperature Temperature Source Pulse Rate 114 H 112 H Blood Pressure 122/68 H BP Systolic 122 BP Diastolic 68 Pulse Ox 03/17/23 17:15 03/17/23 17:20 03/17/23 17:20 Temperature Temperature Source Pulse Rate 101 H Blood Pressure BP Systolic BP Diastolic Pulse Ox 99 100 03/17/23 17:26 03/17/23 17:26 03/17/23 17:25 Temperature Temperature Source Pulse Rate 112 H Blood Pressure 126/66 H BP Systolic 126 BP Diastolic 66 Pulse Ox 100 03/17/23 17:30 03/17/23 17:30 03/17/23 17:35 Temperature Temperature Source Pulse Rate 101 H 109 H Blood Pressure BP Systolic BP Diastolic Pulse Ox 100 03/17/23 17:35 Temperature Temperature Source Pulse Rate Blood Pressure BP Systolic BP Diastolic Pulse Ox 99 Weight Weight: 152 lb 8.958 oz Body Mass Index (BMI) 27.0 Physical Exam Const alert, oriented x3 and healthy appearing Constitutional Narrative: uncomfortable with contractions HEENT normocephalic and moist oral mucous membranes Head and Scalp: atraumatic Neck full ROM, no lymphadenopathy, supple and thyroid normal General: trachea midline Thyroid: thyroid normal Lymph Lymphatic: no lymphadenopathy noted Chest inspection of chest normal Resp normal respiratory effort Cardio regular rate GI normal to inspection, nondistended, normoactive bowel sounds, soft to palpation and non-tender Inspection: gravid external exam normal Bimanual Exam - Vag & Uterus: uterus non-tender Manual OB Exam: estimated gestational size appropriate, presentation cephalic, dilated, effaced and station Extremity normal to inspection General Extremity: Negative for edema Skin no rashes or lesions noted Neuro deep tendon reflexes 2+ bilaterally Motor Exam: strength 5/5 throughout and clonus absent Psych mental status grossly normal Labs Labs Labs: Blood Type A POSITIVE Antibody Screen NEGATIVE Hct 38.3 % (37-47) Hgb 12.9 g/dL (12.0-15.0) Obstetrics US Syphilis Total Ab Non-reactive Rubella IgG Antibody Reactive (Nonreactive) Hep Bs Antigen Non-Reactive (Nonreactive) Chlamydia DNA (CAR) Negative (Negative) Neisseria gonorrhoeae DNA (CAR) Negative (Negative) HIV 1&2 Antibody Non-Reactive (Nonreactive) Glucose 1 Hr 50 gm 117 mg/dL (70-140) Group B Strep DNA Negative (Negative) Rhogam given: No Miscellaneous Test Assessment & Plan (1) Placental abruption in third trimester: PLAN: Plan admitted IAL suspected placental abruption and PPROM exp management get Epidural. labs drawn. counseled regarding vs csection if needed
--- NOTE | 2023-03-17 17:47 | EX.PCM.OBRPT ---
Assessment & Plan (1) Placental abruption in third trimester: (2) Vaginal delivery: COMMENT: SM PTL abruption 36 boy hans Maternal Data Information JAKE Calculator Estimated Delivery Date Method Current WG Current Estimate 04/10/23 Ultrasound #1 36w 5d Other Estimates 04/17/23 LMP (Certain) 35w 5d Vaginal Delivery Operative Information Date of Procedure: 03/18/23 Pre-Operative Diagnosis: see a/p diagnoses Post-Operative Diagnosis: same Surgery / Procedure Performed: Spontaneous Vaginal Delivery Type of Anesthesia: Epidural Special Medications: none Estimated Blood Loss: 200 Fluids Replaced: crystalloid Findings Description of Procedure: Patient began pushing and delivered the head in the DIGNA presentation. The head was delivered atraumatically and a loose nuchal cord ?1 was identified and the infant delivered through without complication. wine colored fluid was noted with delivery The anterior and posterior shoulders delivered without complication followed by the rest of the and the was placed on the maternal abdomen. Delayed cord clamping was employed for approximately 60 seconds. Cord was clamped and cut and gentle traction was applied to the cord and the placenta delivered spontaneously immediately following it was noted to be intact with three-vessel cord. The perineum and vagina were inspected and noted to have no laceration. EBL was 200 cc. Patient and tolerated delivery well. Amniotic Fluid Description: Bloody Placental Delivery Description: Spontaneous Placenta Disposition: [facility] Cord Vessel Description: 3 Vessels Cord Entanglement: None Delayed Cord Clamping: Yes Post Vaginal Delivery Medications Given After Delivery: IV Pitocin Episiotomy Description: None Complication Complications: None Procedures Urinary/Genital [id number]: [id number] Vaginal Delivery [facility]
[2023-03-17] MEDS: 0.9% Saline Lock 10 ML Syringe IV (20:08)
[2023-03-17 20:28] LABS: Pathology Specimen OB SEE PATHOLOGY REPORT
[2023-03-18 00:28] VITALS: BP 103/63; PULSE 106; RESP 15; TEMP 36.6; O2SAT 96
[2023-03-18 05:00] VITALS: BP 119/77; PULSE 101; RESP 17; TEMP 36.6; O2SAT 99
[2023-03-18] MEDS: Acetaminophen 500 MG Tablet 1000 MG PO ×2 (05:00→17:22)
--- NOTE | 2023-03-18 07:30 | PN.OBGYN_ITS ---
Subjective Subjective Patient doing well without complaints. Tolerating PO. Ambulating and voiding without difficulty. feeding well. Denies chest pain, shortness of breath, calf pain/swelling, fevers, chills, lightheadedness. Objective Data Objective Data Vital Signs: Vital Signs Temp Pulse Resp BP Pulse Ox O2 Del Method 98 F 101 H 17 119/77 99 Room Air 03/18/23 05:00 03/18/23 05:00 03/18/23 05:00 03/18/23 05:00 03/18/23 05:00 03/18/23 05:00 Oxygen Delivery Method Room Air Weight: 152 lb 8.958 oz Body Mass Index (BMI) 27.0 Intake & Output: Intake and Output for Last 24 Hours 03/16/23 03/17/23 03/18/23 23:59 23:59 23:59 Intake Total 1723.34 / 1723.34 Output Total 700 / 700 Balance 1023.34 / 1023.34 Lab / Micro Data 03/17/23 13:50 Labs: Laboratory Results - last 24 hr 03/17/23 13:50: WBC 13.6 H, RBC 4.26, Hgb 12.9, Hct 38.3, MCV 89.9, MCH 30.3, MCHC 33.7, RDW Std Deviation 41.2, RDW Coeff of Nathan 12.7, Plt Count 162, MPV 9.5, Immature Gran % (Auto) 0.700, Neut % (Auto) 81.2 H, Lymph % (Auto) 11.3 L, [place] % (Auto) 6.1, Eos % (Auto) 0.4, Baso % (Auto) 0.3, Absolute Neuts (auto) 11.1 H, Absolute Lymphs (auto) 1.54, Nucleated RBC % 0, PT 12.1, INR 0.9, APTT 22.5 L, Syphilis Total Ab Non-reactive, Blood Type A POSITIVE, Antibody Screen NEGATIVE ROS Constitutional Constitutional: Reports systems reviewed and no addt'l complaints, except as documented Cardiovascular Cardiovascular: Reports systems reviewed and no addt'l complaints, except as documented Respiratory/Chest Respiratory/Chest: Reports systems reviewed and no addt'l complaints, except as documented Gastrointestinal Gastrointestinal: Reports systems reviewed and no addt'l complaints, except as documented Physical Exam Const alert, oriented x3 and no apparent distress HEENT Head and Scalp: atraumatic Resp normal respiratory effort GI soft to palpation and non-tender Bimanual Exam - Vag & Uterus: uterus non-tender Uterus Palpation: uterus fundus firm (below Umbilicus) Assessment & Plan (1) Vaginal delivery: COMMENT: SM PTL abruption 36 boy hans (2) Placental abruption in third trimester: PLAN: Plan s/p PPD # 1 1. routine post delivery care 2. breast feeding- support given 3. rh positive 4. rubella immune
--- NOTE | 2023-03-18 07:30 | DCINST_ITS ---
Discharge Instructions Diet Discharge Diet: No restrictions Activity Discharge Activity: Return to Normal Activity, May Not Drive (while taking narcotic pain medications.) and May Shower May resume sexual activity in: 4-6 weeks Dressing / Incision Call your doctor if your incision/area has: Continuous Slow Oozing, Sudden Increased Bleeding, Increased Pain/ Swelling, Increased Redness and Foul Smelling Discharge Follow Up Care Please Follow Up With: Yue May MD When: Call [phone] to make an appointment with your doctor in 6 weeks. If you had elevated blood pressure or 4th degree laceration, you will need to be seen in 2 weeks. Test Results: Test results from this visit will be discussed in further detail at your follow- up appointment, if applicable. Discharge Plan Admission Admit Date/Time: 03/17/23 13:30 Attending Provider: Yue May Primary Care Provider: Hannah Bella Primary Discharge Orders/Prescriptions Prescriptions: No Action prenat.vits,keshia,[id number]-yoru-pzerx Tablet 1 tab PO DAILY Probiotic 10 billion cell capsule 10,000 mmu cells PO DAILY Referrals / Follow Up: Care Physician,Hannah Primary [Primary Care Provider] - Disposition Disposition (needs filled in before D/C Order can be placed): Home, Self Care
[2023-03-18] MEDS: Naproxen 500 MG Tablet PO (07:40)
[2023-03-18 07:57] VITALS: BP 110/73; PULSE 92; RESP 16; TEMP 36.6; O2SAT 95
[2023-03-18 12:44] VITALS: BP 96/62; PULSE 96; RESP 16; TEMP 36.3; O2SAT 100
[2023-03-18 17:24] VITALS: BP 110/70; PULSE 92; RESP 16; TEMP 36.4; O2SAT 96
[2023-03-18 21:45] VITALS: BP 92/54; PULSE 97; RESP 14; TEMP 36.7; O2SAT 97
[2023-03-19] MEDS: Naproxen 500 MG Tablet PO (00:10)
[2023-03-19 02:35] VITALS: BP 106/63; PULSE 84; RESP 16; TEMP 36.6; O2SAT 98
--- NOTE | 2023-03-19 09:02 | PN.OBGYN_ITS ---
Subjective Subjective Patient doing well without complaints. Tolerating PO. Ambulating and voiding without difficulty. Feeding well. Denies chest pain, shortness of breath, calf pain/swelling, fevers, chills, lightheadedness. Objective Data Objective Data Vital Signs: Vital Signs Temp Pulse Resp BP Pulse Ox O2 Del Method 97.9 F 84 16 106/63 98 Room Air 03/19/23 02:35 03/19/23 02:35 03/19/23 02:35 03/19/23 02:35 03/19/23 02:35 03/19/23 02:35 Oxygen Delivery Method Room Air Weight: 152 lb 8.958 oz Body Mass Index (BMI) 27.0 Intake & Output: Intake and Output for Last 24 Hours 03/17/23 03/18/23 03/19/23 23:59 23:59 23:59 Intake Total 1723.34 / 1723.34 Output Total 700 / 700 Balance 1023.34 / 1023.34 Lab / Micro Data Attestation: I reviewed the patient's lab results. 03/17/23 13:50 ROS Constitutional Constitutional: Reports systems reviewed and no addt'l complaints, except as documented; Denies anorexia or headache(s) Cardiovascular Cardiovascular: Reports systems reviewed and no addt'l complaints, except as documented; Denies dizziness, dyspnea, nausea or tachypnea Respiratory/Chest Respiratory/Chest: Reports systems reviewed and no addt'l complaints, except as documented; Denies cough, dyspnea, shortness of breath at rest or tachypnea Gastrointestinal Gastrointestinal: Reports systems reviewed and no addt'l complaints, except as documented; Denies abdominal pain, constipation or nausea Genitourinary Genitourinary: Reports systems reviewed and no addt'l complaints, except as documented; Denies burning urination, difficulty urinating, dysuria, urinary frequency or urinary incontinence Musculoskeletal Musculoskeletal: Reports systems reviewed and no addt'l complaints, except as documented Integumentary Integumentary: Reports systems reviewed and no addt'l complaints, except as documented Neurologic Neurologic: Reports systems reviewed and no addt'l complaints, except as docum ented; Denies abnormal speech, dizziness or headache(s) Psychiatric Psychiatric: Reports systems reviewed and no addt'l complaints, except as documented Endocrine Endocrinology: Reports systems reviewed and no addt'l complaints, except as documented Hematologic/Lymphatic Hematologic/Lymphatic: Reports systems reviewed and no addt'l complaints, except as documented Physical Exam Const alert, oriented x3 and no apparent distress Neck full ROM Resp normal respiratory effort, normal air movement and no retractions Effort and Inspection: able to speak in complete sentences and symmetric chest movement GI soft to palpation Bladder / Kidney Exam: bladder normal to palpation Uterus Palpation: uterus fundus firm Extremity normal to inspection and full ROM Psych mental status grossly normal, thought process normal and cooperative Assessment & Plan (1) Vaginal delivery: COMMENT: LARISSA PTL abruption 36 boy hans PLAN: s/p PPD # 2 1. routine post delivery care 2. breast feeding- support given 3. rh positive 4. rubella immune 5. Discharge Home (2) Placental abruption in third trimester: Charges/Coding Multi Select Codes Urinary/Genital Urinary/Genital CPT Codes: No Charge
[2023-03-19 09:30] VITALS: BP 107/70; PULSE 97; RESP 16; TEMP 36.5; O2SAT 96
== END 2023-03-19 12:07 | disposition home or self-care (01) | DRG 805 ==
PROVIDERS: Admitting Provider Obstetrics & Gynecology; Visit Provider Obstetrics & Gynecology
DX: O45.93 Premature separation of placenta, unspecified, third trimester (principal); Z37.0 Single live birth; O60.14X0 Preterm labor third trimester with preterm delivery third trimester, not applicable or unspecified; O42.913 Preterm premature rupture of membranes, unspecified as to length of time between rupture and onset of labor, third trimester; O69.81X0 Labor and delivery complicated by cord around neck, without compression, not applicable or unspecified; Z3A.36 36 weeks gestation of pregnancy
CPT/HCPCS: 59050; 85025; 85610; 85730; 86780; 86850; 86900; 86901; 88307; 99221; J7120; A4216; G0378